=== PATIENT | female | born 1960 | race American Indian/Alaskan Native ===

== ENCOUNTER 2016-06-11 13:59 | Emergency (ER) | payer MEDICAID ==
[2016-06-11 14:14] VITALS: BP 127/65
--- NOTE | 2016-06-11 15:17 | EDM.PDOC ---
ED HPI GENERAL MEDICAL PROBLEM - General Chief Complaint: Abdominal Pain Stated Complaint: FLU Time Seen by Provider: 06/11/16 14:55 Source of Information: Reports: Patient History Limitations: Reports: No limitations - History of Present Illness INITIAL COMMENTS - FREE TEXT/NARRATIVE: This 56 yo female patient reports to the ED with a 1 day history of upper abdominal pain and a 1 week history of a cough. The patient reports she has not been able to sleep due to the cough. Today, the patient reports increased pain in her upper abdomen. The patient has not been seen by a primary care facility and is currently not taking any medications for temporary symptom relief. Onset: today (abdominal pain with nausea), gradual (cough) Duration: Week(s): Location: Reports: chest, abdomen Quality: Reports: Ache, Dull Severity: moderate Improves with: Reports: None Worsens with: Reports: None Associated Symptoms: Reports: cough, nausea/vomiting Epigastric Pain Score (Numeric/FACES): 5 - Related Data Allergies Allergy/AdvReac Type Severity Reaction Status Date / Time Anesthetics - Amide Type Allergy Anaphylactic Verified 06/11/16 14:09 Shock ibuprofen Allergy Stomach Verified 06/11/16 14:09 Ache Home Meds: Home Meds Bumetanide [Bumex] 0.5 mg PO DAILY 06/11/16 [History] Insulin Aspart [NovoLOG] 6 units SQ ASDIRECTED 06/11/16 [History] Insulin Detemir [Levemir] 20 units SQ ASDIRECTED 06/11/16 [History] Levothyroxine Sodium [Synthroid] 1 tab PO DAILY 06/11/16 [History] Metoprolol Tartrate [Lopressor] 1 tab PO DAILY 06/11/16 [History] Mometasone/Formoterol [Dulera 200-5 MCG] 1 puff INH ASDIRECTED 06/11/16 [History ] Montelukast [Singulair] 1 tab PO DAILY 06/11/16 [History] PARoxetine HCl [Paxil] 1 tab PO DAILY 06/11/16 [History] Pantoprazole Sodium [Protonix] 1 tab PO DAILY 06/11/16 [History] hydrALAZINE [Apresoline] 1 tab PO DAILY 06/11/16 [History] Past Medical History Cardiovascular History: Reports: Hypertension Gastrointestinal History: Reports: GERD Genitourinary History: Reports: Dialysis Psychiatric History: Reports: Depression Endocrine/Metabolic History: Reports: Diabetes, type I Social & Family History - Family History Family Medical History: Noncontributory - Tobacco Use Smoking Status *Q: Never Smoker Second Hand Smoke Exposure: No - Caffeine Use Caffeine Use: Reports: Coffee Caffeine Use Comment: occassional ED ROS GENERAL - Review of Systems Review Of Systems: ROS reveals no pertinent complaints other than HPI. ED EXAM, GENERAL - Physical Exam Exam: See Below Exam Limited By: No limitations General Appearance: alert, WD/WN, moderate distress Eye Exam: bilateral eye: EOMI, normal inspection, PERRL Ears: normal external exam, normal canal, hearing grossly normal, normal TMs Nose: normal inspection, normal mucosa, no blood Throat/Mouth: Normal inspection, Normal lips, Normal teeth, Normal gums, Normal oropharynx, Normal voice, No airway compromise Head: atraumatic, normocephalic Neck: normal inspection, supple, non-tender, full range of motion Respiratory/Chest: no respiratory distress, no accessory muscle use, chest non- tender, rhonchi (diffuse) Cardiovascular: normal peripheral pulses, regular rate, rhythm, no edema, no gallop, no JVD, no murmur, no rub GI/Abdominal: normal bowel sounds, soft, no organomegaly, no distention, no abnormal bruit, no mass, tender (epigastric) (Female) Exam: Deferred Rectal (Female) Exam: Deferred Back Exam: normal inspection, full range of motion, NT Extremities: normal inspection, normal range of motion, non-tender, normal capillary refill, no pedal edema Neurological: alert, oriented, CN II-XII intact, normal cognition, normal gait, normal reflexes, no motor/sensory deficits Psychiatric: normal affect, normal mood Skin Exam: Warm, Dry, Intact, Normal color, No rash Lymphatic: no adenopathy Course - Vital Signs Last Recorded V/S: Last Vital Signs Temp 36.1 C 06/11/16 14:12 Pulse 131 H 06/11/16 14:12 Resp 20 06/11/16 14:12 BP 127/65 06/11/16 14:12 Pulse Ox 99 06/11/16 14:12 - Orders/Labs/Meds Orders: Active Orders 24 hr Category Date Time Status STREP SCRN A RAPID W CULT CONF [RM] Stat Lab 06/11/16 15:11 Received Lactated Ringers [Ringers, Lactated] 1,000 ml Med 06/11/16 16:17 Ordered IV .BOLUS Medication Orders Lactated Ringer's (Ringers, Lactated) 1,000 mls @ 500 mls/hr IV .BOLUS ONE Stop: 06/11/16 18:16 Labs: Laboratory Tests 06/11/16 06/11/16 Range/Units 15:15 15:15 WBC 10.6 H (5.0-10.0) 10^3/uL RBC 3.66 L (4.2-5.4) 10^6/uL Hgb 11.5 L (12.0-16.0) g/dL Hct 33.9 L (37.0-47.0) % MCV 92.6 (80-100) fL MCH 31.4 (27.0-34.0) pg MCHC 33.9 (33.0-35.0) g/dL Plt Count 293 (150-450) 10^3/uL Neut % (Auto) 84.7 H (42.2-75.2) % Lymph % (Auto) 10.6 L (20.5-50.1) % [place] % (Auto) 2.5 (2-8) % Eos % (Auto) 1.9 (1.0-3.0) % Baso % (Auto) 0.3 (0.0-1.0) % Sodium 135 (135-145) mmol/L Potassium 3.9 (3.6-5.0) mmol/L Chloride 95 L (101-111) mmol/L Carbon Dioxide 28.0 (21.0-31.0) mmol/L Anion Gap 15.9 BUN 35 H (7-18) mg/dL Creatinine 4.0 H (0.6-1.3) mg/dL Est Cr Clr Drug Dosing 14.53 mL/min Estimated GFR (MDRD) 12 BUN/Creatinine Ratio 8.75 Glucose 327 H (74-105) mg/dL Calcium 7.9 L (8.4-10.2) mg/dl Total Bilirubin 1.0 (0.2-1.0) mg/dL AST 170 H (10-42) IU/L ALT 415 H (10-60) IU/L Alkaline Phosphatase 149 H (42-121) IU/L Total Protein 6.4 L (6.7-8.2) g/dl Albumin 2.8 L (3.2-5.5) g/dl Globulin 3.6 Albumin/Globulin Ratio 0.78 Amylase 765 H (28-100) U/L Lipase 334 H (22-51) U/L Meds: Medications Generic Name Dose Route Start Last Admin Trade Name Freq PRN Reason Stop Dose Admin Lactated Ringer's 1,000 mls @ 500 mls/hr 06/11/16 16:17 Ringers, Lactated IV 06/11/16 18:16 .BOLUS ONE Departure - Departure Time of Disposition: 16:32 Disposition: DC/Tfer to Acute Hospital 02 Condition: poor Clinical Impression: Acute pancreatitis Qualifiers: Pancreatitis type: unspecified pancreatitis type Acute pancreatitis complication: unspecified Qualified Code(s): K85.90 - Acute pancreatitis without necrosis or infection, unspecified Forms: Interfacility Transfer EMTALA Care Plan Goals: Discussed the patient's history, examination, lab and x-ray results with Dr. Mora (Hospitalist with [facility] in [place]). Dr. Mora accepted the patient for continued evaluation and management. The patient will be transported by [facility]. - My Orders Last 24 Hours: My Active Orders 06/11/16 15:11 STREP SCRN A RAPID W CULT CONF [RM] Stat 06/11/16 16:17 Lactated Ringers [Ringers, Lactated] 1,000 ml IV .BOLUS - Assessment/Plan Last 24 Hours: My Active Orders 06/11/16 15:11 STREP SCRN A RAPID W CULT CONF [RM] Stat 06/11/16 16:17 Lactated Ringers [Ringers, Lactated] 1,000 ml IV .BOLUS
--- NOTE | 2016-06-11 16:08 | CR ---
Clinical history: 56-year-old female with cough and shortness of breath. Interpretation: Coarse accentuation of bronchovascular markings and patchy, anterior segment, left l ower lobe atelectasis or developing infiltrate. Normal cardiac silhouette without signs of alveolar edema or dependent effusion. No lung mass, hilar lymphadenopathy or other focal lobar consolidation. CONCLUSION: Left lower lobe atelectasis or infiltrate.
[2016-06-11] MEDS ORDERED: Lactated Ringers 1,000 ML IV ONE (16:17)
[2016-06-11] MEDS ORDERED: Morphine 2 MG/ML Syringe IVPUSH ONE (16:33)
== END 2016-06-11 17:15 ==
LOC: DL.ED 13:59
DX: K85.90 Acute pancreatitis without necrosis or infection, unspecified (principal); I10 Essential (primary) hypertension; K21.9 Gastro-esophageal reflux disease without esophagitis; F32.9 Major depressive disorder, single episode, unspecified; E10.9 Type 1 diabetes mellitus without complications; Z79.4 Long term (current) use of insulin; Z79.899 Other long term (current) drug therapy; Z88.6 Allergy status to analgesic agent; Z88.4 Allergy status to anesthetic agent
CPT/HCPCS: 36415; 71020; 80053; 82150; 83690; 85025; 87081; 87430; 87804; 96361; 96374; 99284; J2270; J7120

== ENCOUNTER 2017-01-03 12:18 | Emergency (ER) | payer MEDICAID ==
--- NOTE | 2017-01-03 12:36 | EDM.PDOC ---
ED HPI GENERAL MEDICAL PROBLEM - General Chief Complaint: Diabetic Complaint Stated Complaint: FROM DIALYSIS Time Seen by Provider: 01/03/17 12:35 Source of Information: Reports: Patient, RN, RN Notes Reviewed History Limitations: Reports: No Limitations - History of Present Illness INITIAL COMMENTS - FREE TEXT/NARRATIVE: Pt presents to the ER from dialysis today. Report from dialysis nurse was that pt's bp upon arrival to dialysis was 190/97. Patient states she had taken all of her medications prior to dialysis. During the run the pt's bp dropped to 87 syst., patient became clammy and the nurses were unable to arouse the patient. Dialysis nurse states she was given 25gm of D50, juice, and candy. BP reportedly improved and patient was taken off dialysis 30 minutes early. Patient states she takes 10 units of humalog and took it this morning. She states she felt fine when she left dialysis, and she feels fine now. Denies chest pain, sob, fever, chills, N/V/D. Onset: Today, Sudden Associated Symptoms: Reports: No Other Symptoms Abdomen Pain Score (Numeric/FACES): 5 - Related Data Allergies Allergy/AdvReac Type Severity Reaction Status Date / Time Anesthetics - Amide Type Allergy Anaphylactic Verified 01/03/17 12:45 Shock ibuprofen Allergy Stomach Verified 01/03/17 12:45 Ache Home Meds: Home Meds Bumetanide [Bumex] 0.5 mg PO DAILY 06/11/16 [History] Insulin Aspart [NovoLOG] 10 units SQ ASDIRECTED 06/11/16 [History] Insulin Detemir [Levemir] 35 units SQ ASDIRECTED 06/11/16 [History] Levothyroxine Sodium [Synthroid] 1 tab PO DAILY 06/11/16 [History] Metoprolol Tartrate [Lopressor] 1 tab PO DAILY 06/11/16 [History] Mometasone/Formoterol [Dulera 200-5 MCG] 1 puff INH ASDIRECTED 06/11/16 [History ] Montelukast [Singulair] 1 tab PO DAILY 06/11/16 [History] PARoxetine HCl [Paxil] 0.5 tab PO DAILY 06/11/16 [History] Pantoprazole Sodium [Protonix] 1 tab PO DAILY 06/11/16 [History] hydrALAZINE [Apresoline] 1 tab PO DAILY 06/11/16 [History] Past Medical History Cardiovascular History: Reports: Hypertension Gastrointestinal History: Reports: GERD Genitourinary History: Reports: Dialysis Psychiatric History: Reports: Depression Endocrine/Metabolic History: Reports: Diabetes, Type I Social & Family History - Family History Family Medical History: Noncontributory - Tobacco Use Smoking Status *Q: Never Smoker Second Hand Smoke Exposure: No - Caffeine Use Caffeine Use: Reports: Coffee Caffeine Use Comment: occassional ED ROS GENERAL - Review of Systems Review Of Systems: ROS reveals no pertinent complaints other than HPI. - Physical Exam Exam: See Below Exam Limited By: No Limitations General Appearance: Alert, WD/WN, No Apparent Distress Eye Exam: Bilateral Eye: Normal Inspection Ears: Normal External Exam, Hearing Grossly Normal Nose: Normal Inspection Throat/Mouth: Normal Inspection, Normal Voice, No Airway Compromise Head Exam: Atraumatic, Normocephalic Neck: Normal Inspection Respiratory/Chest: No Respiratory Distress, Lungs Clear, Normal Breath Sounds Cardiovascular: Normal Peripheral Pulses, Regular Rate, Rhythm, No Edema, No Gallop, No JVD, No Murmur, No Rub GI/Abdominal: Normal Bowel Sounds, Soft, Non-Tender, No Organomegaly, No Distention, No Abnormal Bruit, No Mass (Female) Exam: Deferred Rectal (Female) Exam: Deferred Neuro Exam (Abbreviated): Alert, Oriented, Normal Cognition, Normal Gait, Normal Reflexes, No Motor/Sensory Deficits Back Exam: Normal Inspection, Full Range of Motion Extremities: Normal Inspection, Normal Range of Motion, Non-Tender, No Pedal Edema, Normal Capillary Refill Psychiatric: Normal Affect, Normal Mood Skin Exam: Warm, Dry, Intact, Normal Color, No Rash EKG INTERPRETATION EKG Date: 01/03/17 Time: 13:39 Rhythm: NSR [place]: Normal P-Wave: Present QRS: Normal ST-T: Normal QT: Normal Comparison: NA - No Prior EKG Course - Vital Signs Last Recorded V/S: Last Vital Signs Temp 96.7 F 01/03/17 12:36 Pulse 71 01/03/17 12:36 Resp 16 01/03/17 12:36 BP 109/56 L 01/03/17 12:36 Pulse Ox 98 01/03/17 12:36 - Orders/Labs/Meds Orders: Active Orders 24 hr Category Date Time Status EKG Documentation Completion [RC] STAT Care 01/03/17 12:38 Active UA W/MICROSCOPIC [URIN] Stat Lab 01/03/17 12:38 Uncollected Labs: Laboratory Tests 01/03/17 01/03/17 Range/Units 12:49 12:49 WBC 8.7 (5.0-10.0) 10^3/uL RBC 3.33 L (4.2-5.4) 10^6/uL Hgb 11.6 L (12.0-16.0) g/dL Hct 35.3 L (37.0-47.0) % MCV 106.0 H D (80-100) fL MCH 34.8 H (27.0-34.0) pg MCHC 32.9 L (33.0-35.0) g/dL Plt Count 194 D (150-450) 10^3/uL Neut % (Auto) 76.5 H (42.2-75.2) % Lymph % (Auto) 12.0 L (20.5-50.1) % [place] % (Auto) 4.2 (2-8) % Eos % (Auto) 6.5 H (1.0-3.0) % Baso % (Auto) 0.8 (0.0-1.0) % Sodium 135 (135-145) mmol/L Potassium 4.4 (3.6-5.0) mmol/L Chloride 94 L (101-111) mmol/L Carbon Dioxide 28.0 (21.0-31.0) mmol/L Anion Gap 17.4 BUN 34 H (7-18) mg/dL Creatinine 5.6 H D (0.6-1.3) mg/dL Est Cr Clr Drug Dosing TNP Estimated GFR (MDRD) 8 BUN/Creatinine Ratio 6.07 Glucose 302 H (74-105) mg/dL Calcium 8.1 L (8.4-10.2) mg/dl Total Bilirubin 0.6 (0.2-1.0) mg/dL AST 20 (10-42) IU/L ALT 15 (10-60) IU/L Alkaline Phosphatase 144 H (42-121) IU/L Total Protein 7.4 (6.7-8.2) g/dl Albumin 3.7 (3.2-5.5) g/dl Globulin 3.7 Albumin/Globulin Ratio 1.00 Departure - Departure Time of Disposition: 13:24 Disposition: Home, Self-Care 01 Condition: Good Clinical Impression: Hyperglycemia CKD (chronic kidney disease) Qualifiers: Chronic kidney disease stage: on chronic dialysis Qualified Code(s): N18.6 - End stage renal disease - Discharge Information Instructions: Hypotension, [id number], Type 2 Diabetes Mellitus, Adult, Easy- to-Read Forms: ED Department Discharge Additional Instructions: Follow up with Dr. Moura tomorrow at [facility]. Dialysis as scheduled. Check blood sugars regularly. - My Orders Last 24 Hours: My Active Orders 01/03/17 12:38 EKG Documentation Completion [RC] STAT UA W/MICROSCOPIC [URIN] Stat - Assessment/Plan Last 24 Hours: My Active Orders 01/03/17 12:38 EKG Documentation Completion [RC] STAT UA W/MICROSCOPIC [URIN] Stat
[2017-01-03 12:45] VITALS: BP 109/56
[2017-01-03 13:14] LABS: CHLORIDE,CL 94 mmol/L (101-111); SODIUM,NA 135 mmol/L (135-145)
--- NOTE | 2017-01-10 12:21 | EKG ---
01/03/2017 - FAITH STRAUSS - This 12-lead EKG shows a normal sinus rhythm with a ventricular rate of 72. Normal axis. Prolonged QT interval. No acute ST-segment or T-wave changes. [facility] /[id number]
== END 2017-01-03 13:50 | disposition home or self-care (01) ==
LOC: DL.ED 12:18
DX: E10.65 Type 1 diabetes mellitus with hyperglycemia (principal); E10.22 Type 1 diabetes mellitus with diabetic chronic kidney disease; N18.6 End stage renal disease; I12.0 Hypertensive chronic kidney disease with stage 5 chronic kidney disease or end stage renal disease; K21.9 Gastro-esophageal reflux disease without esophagitis; F32.9 Major depressive disorder, single episode, unspecified; Z88.6 Allergy status to analgesic agent; Z79.4 Long term (current) use of insulin
CPT/HCPCS: 36415; 80053; 85025; 93005; 99285

== ENCOUNTER 2017-04-22 14:34 | Emergency (ER) | payer MEDICAID ==
--- NOTE | 2017-04-22 14:53 | EDM.PDOC ---
ED HPI GENERAL MEDICAL PROBLEM - General Chief Complaint: Abdominal Pain Stated Complaint: SICK X 3 WEEKS Time Seen by Provider: 04/22/17 14:53 Source of Information: Reports: Patient, Old Records, RN, RN Notes Reviewed History Limitations: Reports: No Limitations - History of Present Illness INITIAL COMMENTS - FREE TEXT/NARRATIVE: Arrives from home by POV with c/o mild generalized abdominal pain, weakness, fatigue, cough, and diarrhea for the last 3 weeks. Pt has felt much worse for the last 3 days. She felt too weak today to go to dialysis, but has not missed any other days. Pt reports that she was seen at [facility] 3 weeks ago for a colonoscopy, but they could not complete the study because pt was having pain and the prep was not adequate. She states that following the colonoscopy she had several days of bloody diarrhea. The bloody stool was self limited, but she has continued to have about 5 watery diarrhea BMs per day since that time. Duration: Week(s): (3) Quality: Reports: Ache Severity: Severe Improves with: Reports: None Worsens with: Reports: None Associated Symptoms: Reports: No Other Symptoms Right Headache Pain Score (Numeric/FACES): 7 Lower Abdomen Pain Score (Numeric/FACES): 7 - Related Data Allergies Allergy/AdvReac Type Severity Reaction Status Date / Time Anesthetics - Amide Type Allergy Anaphylactic Verified 01/03/17 12:45 Shock ibuprofen Allergy Stomach Verified 01/03/17 12:45 Ache Home Meds: Home Meds Bumetanide [Bumex] 0.5 mg PO DAILY 06/11/16 [History] Insulin Aspart [NovoLOG] 10 units SQ ASDIRECTED 06/11/16 [History] Insulin Detemir [Levemir] 35 units SQ ASDIRECTED 06/11/16 [History] Levothyroxine Sodium [Synthroid] 1 tab PO DAILY 06/11/16 [History] Metoprolol Tartrate [Lopressor] 1 tab PO DAILY 06/11/16 [History] Mometasone/Formoterol [Dulera 200-5 MCG] 1 puff INH ASDIRECTED 06/11/16 [History ] Montelukast [Singulair] 1 tab PO DAILY 06/11/16 [History] PARoxetine HCl [Paxil] 0.5 tab PO DAILY 06/11/16 [History] Pantoprazole Sodium [Protonix] 1 tab PO DAILY 06/11/16 [History] hydrALAZINE [Apresoline] 1 tab PO DAILY 06/11/16 [History] Past Medical History HEENT History: Reports: Impaired Vision Other HEENT History: wears glasses Cardiovascular History: Reports: Hypertension Respiratory History: Reports: Asthma, COPD Gastrointestinal History: Reports: GERD Genitourinary History: Reports: Dialysis [employer] History: Reports: None Musculoskeletal History: Reports: None Neurological History: Reports: None Psychiatric History: Reports: Depression Endocrine/Metabolic History: Reports: Diabetes, Type I Hematologic History: Reports: None Immunologic History: Reports: None Oncologic (Cancer) History: Reports: None Dermatologic History: Reports: None - Infectious Disease History Infectious Disease History: Reports: Measles, Mumps Social & Family History - Family History Family Medical History: Noncontributory - Tobacco Use Smoking Status *Q: Never Smoker Second Hand Smoke Exposure: No - Caffeine Use Caffeine Use: Reports: Coffee Caffeine Use Comment: occassional - Recreational Drug Use Recreational Drug Use: No ED ROS GENERAL - Review of Systems Review Of Systems: ROS reveals no pertinent complaints other than HPI. ED EXAM, GENERAL - Physical Exam Exam: See Below Exam Limited By: No Limitations General Appearance: Other (Chronically ill appearing. Non-toxic appearing.) Eye Exam: Bilateral Eye: Normal Inspection Ears: Normal External Exam, Normal Canal, Hearing Grossly Normal, Normal TMs Nose: Normal Inspection, Normal Mucosa, No Blood Throat/Mouth: Other (dry oral membranes) Head: Atraumatic Neck: Normal Inspection, Supple, Non-Tender, Full Range of Motion Respiratory/Chest: No Respiratory Distress, Lungs Clear, No Accessory Muscle Use , Chest Non-Tender, Decreased Breath Sounds (in bilateral bases.) Cardiovascular: Normal Peripheral Pulses, Regular Rate, Rhythm, No Edema, No Gallop, No JVD, No Murmur, No Rub GI/Abdominal: Normal Bowel Sounds, Soft, No Distention, Other (moderately obese. Mild generalized tenderness. No peritoneal signs. ). No: Guarding, Rigid , Rebound (Female) Exam: Deferred Rectal (Female) Exam: Deferred Back Exam: Normal Inspection, Full Range of Motion, NT Extremities: Normal Inspection, Normal Range of Motion, Non-Tender, Normal Capillary Refill, No Pedal Edema Neurological: Alert, Oriented, CN II-XII Intact, Normal Cognition, Normal Gait, Normal Reflexes, No Motor/Sensory Deficits Psychiatric: Normal Affect, Normal Mood Skin Exam: Warm Lymphatic: No Adenopathy Course - Vital Signs Last Recorded V/S: Last Vital Signs Temp 37.4 C 04/22/17 14:47 Pulse 71 04/22/17 14:47 Resp 18 04/22/17 14:47 BP 155/61 H 04/22/17 14:47 Pulse Ox 97 04/22/17 14:47 - Orders/Labs/Meds Orders: Active Orders 24 hr Category Date Time Status Peripheral IV Care [RC] . DIRECTED Care 04/22/17 15:10 Active Chest 2V [CR] Stat Exams 04/22/17 15:10 Taken CULTURE BLOOD [BC] Stat Lab 04/22/17 15:27 Received CULTURE BLOOD [] Stat Lab 04/22/17 15:30 Results CULTURE STREP A CONFIRMATION [] Stat Lab 04/22/17 15:30 Results STREP SCRN A RAPID W CULT CONF [] Stat Lab 04/22/17 15:30 Results Sodium Chloride 0.9% [Saline Flush] Med 04/22/17 15:10 Active 10 ml FLUSH ASDIRECTED PRN Blood Culture x2 Reflex Set [OM.PC] Stat Oth 04/22/17 15:10 Ordered Peripheral IV Insertion Adult [OM.PC] Stat Oth 04/22/17 15:10 Ordered Medication Orders Sodium Chloride (Saline Flush) 10 ml FLUSH ASDIRECTED PRN PRN Reason: Keep Vein Open Last Admin: 04/22/17 15:37 Dose: 10 ml Labs: Laboratory Tests 04/22/17 04/22/17 04/22/17 Range/Units 15:27 15:27 15:27 WBC 10.4 H (5.0-10.0) 10^3/uL RBC 2.94 L (4.2-5.4) 10^6/uL Hgb 9.4 L D (12.0-16.0) g/dL Hct 29.2 L (37.0-47.0) % MCV 99.3 D (80-100) fL MCH 32.0 (27.0-34.0) pg MCHC 32.2 L (33.0-35.0) g/dL Plt Count 109 L D (150-450) 10^3/uL Neut % (Auto) 75.7 H (42.2-75.2) % Lymph % (Auto) 15.1 L (20.5-50.1) % [place] % (Auto) 6.2 (2-8) % Eos % (Auto) 2.1 (1.0-3.0) % Baso % (Auto) 0.9 (0.0-1.0) % Add Manual Diff Yes Neutrophils % (Manual) 82 H (42-75) % Lymphocytes % (Manual) 10 L (20-50) % Monocytes % (Manual) 4 (2-8) % Eosinophils % (Manual) 2 (1-3) % Basophils % (Manual) 2 Nucleated RBCs 1 /100WBC Platelet Estimate Decreased Giant Platelets Few Polychromasia 1+ slight Macrocytosis 1+ slight Sodium 127 L (135-145) mmol/L Potassium 4.6 (3.6-5.0) mmol/L Chloride 89 L (101-111) mmol/L Carbon Dioxide 20.0 L (21.0-31.0) mmol/L Anion Gap 22.6 BUN 59 H D (7-18) mg/dL Creatinine 8.2 H D (0.6-1.3) mg/dL Est Cr Clr Drug Dosing 7.00 mL/min Estimated GFR (MDRD) 5 BUN/Creatinine Ratio 7.19 Glucose 413 H* (74-105) mg/dL Lactic Acid 2.8 H (0.5-2.2) mmol/L Calcium 7.9 L (8.4-10.2) mg/dl Phosphorus 6.0 H (2.5-4.6) mg/dL Magnesium 1.6 L (1.8-2.5) mg/dL Total Bilirubin 1.0 (0.2-1.0) mg/dL AST 627 H (10-42) IU/L ALT 1118 H (10-60) IU/L Alkaline Phosphatase 188 H (42-121) IU/L Total Protein 6.5 L (6.7-8.2) g/dl Albumin 3.1 L (3.2-5.5) g/dl Globulin 3.4 Albumin/Globulin Ratio 0.91 Amylase 68 (28-100) U/L Lipase 60 H (22-51) U/L Rapid strep: Negative. Influenza A and B: Negative. Meds: Medications Generic Name Dose Route Start Last Admin Trade Name Freq PRN Reason Stop Dose Admin Sodium Chloride 10 ml 04/22/17 15:10 04/22/17 15:37 Saline Flush FLUSH 10 ml ASDIRECTED PRN Administration Keep Vein Open Discontinued Medications Generic Name Dose Route Start Last Admin Trade Name Freq PRN Reason Stop Dose Admin Hydromorphone HCl 1 mg 04/22/17 16:26 04/22/17 16:41 Dilaudid IVPUSH 04/22/17 16:27 1 mg ONETIME ONE Administration Ondansetron HCl 4 mg 04/22/17 15:12 04/22/17 15:38 Zofran IV 04/22/17 15:13 4 mg ONETIME ONE Administration - Radiology Interpretation Free Text/Narrative:: Chest x-ray: Cardiomegaly with the heart larger as compared to prior chest x- ray. Slightly increased interstitial markings which is about the same and probably due to pulmonary fibrosis. No sign of acute cardiopulmonary abnormality. Departure - Departure Time of Disposition: 16:51 Disposition: DC/Tfer to [facility] 02 Clinical Impression: End stage renal disease on dialysis, Acute diarrhea Acute liver failure Qualifiers: Hepatic coma status: without hepatic coma Qualified Code(s): K72.00 - Acute and subacute hepatic failure without coma - Discharge Information Forms: ED Department Discharge, Interfacility Transfer EMTALA - My Orders Last 24 Hours: My Active Orders 04/22/17 15:10 Peripheral IV Care [RC] . DIRECTED Chest 2V [CR] Stat Sodium Chloride 0.9% [Saline Flush] 10 ml FLUSH ASDIRECTED PRN Blood Culture x2 Reflex Set [OM.PC] Stat Peripheral IV Insertion Adult [OM.PC] Stat 04/22/17 15:27 CULTURE BLOOD [BC] Stat 04/22/17 15:30 CULTURE BLOOD [BC] Stat CULTURE STREP A CONFIRMATION [RM] Stat STREP SCRN A RAPID W CULT CONF [RM] Stat - Assessment/Plan Last 24 Hours: My Active Orders 04/22/17 15:10 Peripheral IV Care [RC] . DIRECTED Chest 2V [CR] Stat Sodium Chloride 0.9% [Saline Flush] 10 ml FLUSH ASDIRECTED PRN Blood Culture x2 Reflex Set [OM.PC] Stat Peripheral IV Insertion Adult [OM.PC] Stat 04/22/17 15:27 CULTURE BLOOD [BC] Stat 04/22/17 15:30 CULTURE BLOOD [BC] Stat CULTURE STREP A CONFIRMATION [] Stat STREP SCRN A RAPID W CULT CONF [RM] Stat
[2017-04-22 15:08] VITALS: BP 155/61
[2017-04-22] MEDS ORDERED: Sodium Chloride 0.9% 10 ML Syringe FLUSH PRN (15:10)
[2017-04-22] MEDS ORDERED: Ondansetron 4 MG/2 ML SDV IV ONE (15:12)
[2017-04-22] MEDS ORDERED: HYDROmorphone 1 MG/ML Syringe IVPUSH ONE (16:26)
== END 2017-04-22 17:22 ==
LOC: DL.ED 14:34
DX: K72.00 Acute and subacute hepatic failure without coma (principal); R19.7 Diarrhea, unspecified; I12.0 Hypertensive chronic kidney disease with stage 5 chronic kidney disease or end stage renal disease; N18.6 End stage renal disease; E10.22 Type 1 diabetes mellitus with diabetic chronic kidney disease; Z88.6 Allergy status to analgesic agent; Z88.4 Allergy status to anesthetic agent; Z79.4 Long term (current) use of insulin; Z79.899 Other long term (current) drug therapy; Z99.2 Dependence on renal dialysis
CPT/HCPCS: 36415; 71046; 80053; 82150; 83605; 83690; 83735; 84100; 85025; 87040; 87081; 87430; 87804; 96374; 96375; 99285; J1170; J2405; J7050

== ENCOUNTER 2017-06-27 13:19 | Emergency (ER) | payer MEDICAID, OTHER ==
--- NOTE | 2017-06-27 14:00 | EDM.PDOC ---
ED HPI GENERAL MEDICAL PROBLEM - General Chief Complaint: Neurological Problem Stated Complaint: SENT FROM DIALYSIS [id number] Time Seen by Provider: 06/27/17 14:00 Source of Information: Reports: Patient, Family, Old Records, RN, RN Notes Reviewed History Limitations: Reports: No Limitations - History of Present Illness INITIAL COMMENTS - FREE TEXT/NARRATIVE: Sent from dialysis, after completing scheduled full dialysis run, due to generalized weakness and mild confusion. Pt has fallen twice at home in the last 3 day. She injured her left wrist and nose. Denies LOC, N/V, or neck injury /pain. Denies fever, chills, CP, SOB, or any other new Sx's. Pt had a stroke about 2 months ago, and she wonders if her Sx's are effects of the stroke. Pt's states that she has been mildly confused at times. Onset: Unknown/Unsure Duration: Week(s): Location: Reports: Face, Upper Extremity, Left, Generalized Quality: Reports: Ache Severity: Moderate Improves with: Reports: None Worsens with: Reports: None Associated Symptoms: Reports: No Other Symptoms Left Knee Pain Score (Numeric/FACES): 7 - Related Data Allergies Allergy/AdvReac Type Severity Reaction Status Date / Time Anesthetics - Amide Type Allergy Anaphylactic Verified 01/03/17 12:45 Shock ibuprofen Allergy Stomach Verified 01/03/17 12:45 Ache Home Meds: Home Meds Bumetanide [Bumex] 0.5 mg PO DAILY 06/11/16 [History] Insulin Aspart [NovoLOG] 10 units SQ ASDIRECTED 06/11/16 [History] Insulin Detemir [Levemir] 35 units SQ ASDIRECTED 06/11/16 [History] Levothyroxine Sodium [Synthroid] 1 tab PO DAILY 06/11/16 [History] Metoprolol Tartrate [Lopressor] 1 tab PO DAILY 06/11/16 [History] Mometasone/Formoterol [Dulera 200-5 MCG] 1 puff INH ASDIRECTED 06/11/16 [History ] Montelukast [Singulair] 1 tab PO DAILY 06/11/16 [History] PARoxetine HCl [Paxil] 0.5 tab PO DAILY 06/11/16 [History] Pantoprazole Sodium [Protonix] 1 tab PO DAILY 06/11/16 [History] hydrALAZINE [Apresoline] 1 tab PO DAILY 06/11/16 [History] Past Medical History HEENT History: Reports: Impaired Vision Other HEENT History: wears glasses Cardiovascular History: Reports: Hypertension Respiratory History: Reports: Asthma, COPD Gastrointestinal History: Reports: GERD Genitourinary History: Reports: Dialysis 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 Musculoskeletal History: Reports: None Neurological History: Reports: None Psychiatric History: Reports: Depression Endocrine/Metabolic History: Reports: Diabetes, Type I Hematologic History: Reports: None Immunologic History: Reports: None Oncologic (Cancer) History: Reports: None Dermatologic History: Reports: None - Infectious Disease History Infectious Disease History: Reports: Measles, Mumps Social & Family History - Family History Family Medical History: Noncontributory - Tobacco Use Smoking Status *Q: Never Smoker Second Hand Smoke Exposure: No - Caffeine Use Caffeine Use: Reports: Coffee Caffeine Use Comment: occassional - Recreational Drug Use Recreational Drug Use: No - Living Situation & Occupation Living situation: Reports: , with Spouse Occupation: Retired ED ROS GENERAL - Review of Systems Review Of Systems: ROS reveals no pertinent complaints other than HPI. ED EXAM, GENERAL - Physical Exam Exam: See Below Exam Limited By: No Limitations General Appearance: Alert, No Apparent Distress, Other (chronically ill appearing) Eye Exam: Bilateral Eye: EOMI, Normal Inspection, PERRL Ears: Normal External Exam, Normal Canal, Hearing Grossly Normal, Normal TMs Nose: Normal Mucosa, No Blood, Other (1cm alex. abrasion ) Throat/Mouth: Normal Inspection, Normal Oropharynx, Normal Voice, No Airway Compromise Head: Atraumatic, Normocephalic Neck: Normal Inspection, Supple, Non-Tender, Full Range of Motion Respiratory/Chest: No Respiratory Distress, Lungs Clear, No Accessory Muscle Use , Chest Non-Tender, Decreased Breath Sounds Cardiovascular: Regular Rate, Rhythm, No Edema GI/Abdominal: Normal Bowel Sounds, Soft, Non-Tender, No Distention, Pelvis Stable. No: Guarding, Rigid, Rebound (Female) Exam: Deferred Rectal (Female) Exam: Deferred Back Exam: Normal Inspection, Full Range of Motion, NT Extremities: No Pedal Edema, Normal Capillary Refill, Other (dorsal left wrist swollen w/bruising, tenderness, and decreaed ROM) Neurological: Alert, Normal Cognition, No Motor/Sensory Deficits, Confused ( slightly), Other (oriented to person and place only) Psychiatric: Normal Mood Skin Exam: Warm, Dry, Normal Color, No Rash EKG INTERPRETATION EKG Date: 06/27/17 Time: 14:34 Rhythm: Other (sinus rhythm) Rate (Beats/Min): 79 [place]: Normal P-Wave: Present QRS: Normal ST-T: Other (borderline T abnormalities, anterior leads.) QT: Prolonged (borderline) Course - Vital Signs Last Recorded V/S: Last Vital Signs Temp 36.5 C 06/27/17 13:56 Pulse 77 06/27/17 13:56 Resp 16 06/27/17 13:56 BP 160/70 H 06/27/17 13:56 Pulse Ox 97 06/27/17 13:56 - Orders/Labs/Meds Orders: Active Orders 24 hr Category Date Time Status EKG 12 Lead [EKG Documentation Completion] [RC] STAT Care 06/27/17 14:19 Active Peripheral IV Care [RC] . DIRECTED Care 06/27/17 14:20 Active Splinting [RC] ASDIRECTED Care 06/27/17 16:13 Active Head wo Cont [CT] Stat Exams 06/27/17 14:21 Ordered Max Facial Sinus wo Cont [CT] Stat Exams 06/27/17 14:22 Ordered Wrist Comp Min 3V Lt [CR] Urgent Exams 06/27/17 14:21 Ordered Sodium Chloride 0.9% [Saline Flush] Med 06/27/17 14:19 Active 10 ml FLUSH ASDIRECTED PRN Peripheral IV Insertion Adult [OM.PC] Stat Oth 06/27/17 14:19 Ordered Medication Orders Sodium Chloride (Saline Flush) 10 ml FLUSH ASDIRECTED PRN PRN Reason: Keep Vein Open Labs: Laboratory Tests 06/27/17 06/27/17 06/27/17 Range/Units 14:30 14:30 14:30 WBC 6.9 (5.0-10.0) 10^3/uL RBC 4.03 L (4.2-5.4) 10^6/uL Hgb 12.2 D (12.0-16.0) g/dL Hct 37.0 (37.0-47.0) % MCV 91.8 D (80-100) fL MCH 30.3 (27.0-34.0) pg MCHC 33.0 (33.0-35.0) g/dL Plt Count 148 L (150-450) 10^3/uL Neut % (Auto) 66.5 (42.2-75.2) % Lymph % (Auto) 20.4 L (20.5-50.1) % [place] % (Auto) 3.2 (2-8) % Eos % (Auto) 8.5 H (1.0-3.0) % Baso % (Auto) 1.4 H (0.0-1.0) % Sodium 136 (135-145) mmol/L Potassium 3.8 (3.6-5.0) mmol/L Chloride 95 L (101-111) mmol/L Carbon Dioxide 30.0 D (21.0-31.0) mmol/L Anion Gap 14.8 BUN 26 H D (7-18) mg/dL Creatinine 4.7 H D (0.6-1.3) mg/dL Est Cr Clr Drug Dosing 12.21 mL/min Estimated GFR (MDRD) 10 BUN/Creatinine Ratio 5.53 Glucose 282 H (74-105) mg/dL Calcium 8.7 (8.4-10.2) mg/dl Total Bilirubin 1.5 H (0.2-1.0) mg/dL AST 18 (10-42) IU/L ALT 13 (10-60) IU/L Alkaline Phosphatase 183 H (42-121) IU/L Ammonia 8 L (11-35) umol/L B-Natriuretic Peptide 1190 H (0-100) pg/ml Total Protein 7.1 (6.7-8.2) g/dl Albumin 3.4 (3.2-5.5) g/dl Globulin 3.7 Albumin/Globulin Ratio 0.92 Meds: Medications Generic Name Dose Route Start Last Admin Trade Name Freq PRN Reason Stop Dose Admin Sodium Chloride 10 ml 06/27/17 14:19 Saline Flush FLUSH ASDIRECTED PRN Keep Vein Open Discontinued Medications Generic Name Dose Route Start Last Admin Trade Name Freq PRN Reason Stop Dose Admin Hydrocodone Bitart/Acetaminophen 1 tab 06/27/17 16:11 06/27/17 16:24 [place]ale 325-5 Mg PO 06/27/17 16:12 1 tab ONETIME ONE Administration - Radiology Interpretation Free Text/Narrative:: CT Head: old CVAs, no acute findings per Rad. report. Xray left wrist: no fracture per Rad. report. - Re-Assessments/Exams Free Text/Narrative Re-Assessment/Exam: 06/27/[address] Gonzalez, pt has a f/u appt. with him next week. Departure - Departure Time of Disposition: 16:14 Disposition: Home, Self-Care 01 Condition: Fair Clinical Impression: Generalized weakness, Confusion, End stage renal disease on dialysis Fall as cause of accidental injury at home as place of occurrence Qualifiers: Encounter type: initial encounter Qualified Code(s): W19.XXXA - Unspecified fall, initial encounter Abrasion of nose Qualifiers: Encounter type: initial encounter Qualified Code(s): S00.31XA - Abrasion of nose, initial encounter Left wrist sprain Qualifiers: Encounter type: initial encounter Qualified Code(s): S63.502A - Unspecified sprain of left wrist, initial encounter Contusion of left wrist Qualifiers: Encounter type: initial encounter Qualified Code(s): S60.212A - Contusion of left wrist, initial encounter - Discharge Information Instructions: Abrasion, Wrist Sprain, Adult, Weakness Forms: ED Department Discharge Additional Instructions: Use your walker! Follow up with Dr. Gonzalez as scheduled. Return to ER if worse at any time. - My Orders Last 24 Hours: My Active Orders 06/27/17 14:19 EKG 12 Lead [EKG Documentation Completion] [RC] STAT Sodium Chloride 0.9% [Saline Flush] 10 ml FLUSH ASDIRECTED PRN Peripheral IV Insertion Adult [OM.PC] Stat 06/27/17 14:20 Peripheral IV Care [RC] . DIRECTED 06/27/17 14:21 Head wo Cont [CT] Stat Wrist Comp Min 3V Lt [CR] Urgent 06/27/17 14:22 Max Facial Sinus wo Cont [CT] Stat 06/27/17 16:13 Splinting [RC] ASDIRECTED - Assessment/Plan Last 24 Hours: My Active Orders 06/27/17 14:19 EKG 12 Lead [EKG Documentation Completion] [RC] STAT Sodium Chloride 0.9% [Saline Flush] 10 ml FLUSH ASDIRECTED PRN Peripheral IV Insertion Adult [OM.PC] Stat 06/27/17 14:20 Peripheral IV Care [RC] . DIRECTED 06/27/17 14:21 Head wo Cont [CT] Stat Wrist Comp Min 3V Lt [CR] Urgent 06/27/17 14:22 Max Facial Sinus wo Cont [CT] Stat 06/27/17 16:13 Splinting [RC] ASDIRECTED
[2017-06-27] MEDS ORDERED: Sodium Chloride 0.9% 10 ML Syringe FLUSH PRN (14:19)
[2017-06-27 14:45] VITALS: BP 160/70
[2017-06-27] MEDS ORDERED: Acetaminophen/HYDROcodone 325-5 MG Tab PO ONE (16:11)
--- NOTE | 2017-06-27 17:30 | CR ---
Clinical history: 57-year-old confused female injured left wrist (fall). Interpretation: Pronounced soft tissue swelling over the dorsum of the wrist without sign of underlying fracture of t he left wrist carpal bones or of the metacarpals left hand. Distal radius and ulna likewise unremarka ble. No foreign bodies. CONCLUSION: No fractures.
--- NOTE | 2017-06-27 17:37 | CT ---
Clinical history: 57-year-old female with history of "stroke" present in the emergency department now with confusion and fall. Scan technique: Volume acquisition of data emergency unenhanced CT scan of the head and brain obtaine d while the patient was lying supine on the Siemens multi slice scanner [place], [place]. All data archived in the PAC system for storage and study (bone/brain windows corrine se breast. Interpretation: 1. Uniformly thick bony calvarium without sign of skull fracture, underlying brain contusion or epidu ral/subdural hematoma. 2. *Multiple areas of ischemic stroke (infarcts), without edema or effacement of the surrounding sulc i, particularly large involving the parietal lobe anteriorly on the right, frontal lobe laterally on the left, and occipital lobe posteriorly on the right. 3. *Additional tiny lacunar type stroke respectively in the head of the caudate nucleus on the right and putamen on the left. 4. Physiologic midline pineal and symmetric choroid plexus calcifications. Mirror-image normal ventri cular system. No hydrocephalus. 5. No sign of acute intracerebral/intraventricular/subarachnoid bleed. 6. Cerebellum and brainstem unremarkable. 7. Symmetric clear pneumatization of the paranasal and mastoid sinuses. CONCLUSION: Multi-infarct ischemic disease (old strokes). No sign of acute intracranial edema or hemo rrhage. No fractures.
--- NOTE | 2017-06-27 17:44 | CT ---
Clinical history: 57-year-old female multiple old "strokes" and confusion who fell injuring her nose. Interpretation: Volume acquisition of data emergency unenhanced CT scan facial bones obtained while t he patient was lying supine on the Siemens multi slice scanner [facility]. All data archived PACS system for storage, reformatting and study. Interpretation: 1. Mild soft tissue swelling but no fracture of the nasal or anterior maxillary spine and, the nasal septum is relatively straight. 2. Symmetric nonedematous nasal turbinates. 3. No foreign bodies. 4. Symmetric clear pneumatization of the paranasal (frontal, ethmoid, maxillary and sphenoid sinuses) and mastoid sinuses. No bony wall fracture, abnormal mucosal wall thickening, or pathologic air-fluid levels. 5. Symmetric dental occlusion. No maxillary or mandibular fractures. Zygomatic arches symmetrically i ntact. 6. Symmetric normal appearing optic globes. No retro-orbital hematomas. CONCLUSION: Mild soft tissue swelling. No facial bone fractures.
--- NOTE | 2017-06-29 12:26 | EKG ---
06/27/2017 - FAITH STRAUSS - TIME: 2:34 p.m. After my reading, sinus rhythm at 79. [facility] /[id number] MTDD
== END 2017-06-27 16:34 | disposition home or self-care (01) ==
LOC: DL.ED 13:19
DX: S63.502A Unspecified sprain of left wrist, initial encounter (principal); S60.212A Contusion of left wrist, initial encounter; S00.31XA Abrasion of nose, initial encounter; E10.22 Type 1 diabetes mellitus with diabetic chronic kidney disease; N18.6 End stage renal disease; I10 Essential (primary) hypertension; Z88.6 Allergy status to analgesic agent; Z79.899 Other long term (current) drug therapy; W19.XXXA Unspecified fall, initial encounter; Y92.009 Unspecified place in unspecified non-institutional (private) residence as the place of occurrence of the external cause
CPT/HCPCS: 36415; 70450; 70486; 73110; 80053; 82140; 83880; 85025; 93005; 99285; A9270

== ENCOUNTER 2018-07-26 12:55 | Emergency (ER) | payer MEDICARE, MEDICAID ==
--- NOTE | 2018-07-26 13:24 | EDM.PDOC ---
ED HPI GENERAL MEDICAL PROBLEM <Maia Brown - Last Filed: 07/26/18 15:33> - General Source of Information: Reports: Patient, Old Records, RN, RN Notes Reviewed History Limitations: Reports: No Limitations Left Trunk Pain Score (Numeric/FACES): 10 <Gabriel Elizabeth - Last Filed: 07/26/18 15:38> - General Chief Complaint: Trauma Stated Complaint: FELL AND HURT RIBS Time Seen by Provider: 07/26/18 13:23 - History of Present Illness INITIAL COMMENTS - FREE TEXT/NARRATIVE: Patient is a 58 year old female presenting with a recent trauma. She states she fell yesterday evening (07/25/18) and hit her chest on a cabinet before falling on the ground. She also thinks she may have hit her head. She denies loss of consciousness. She has associated symptoms of shortness of breath, left sided pain, She does have a significant history of end stage renal disease necessitating hemodialysis, stroke, and syncope. She denies associated symptoms of sudden weakness, fever, chills, chest pain, abdominal pain, or changes in bowel or bladder habits. (Maia Brown) No changes to HPI/CC as documented by the student, except that pt states she has had a cough for a few days and worried that she might get pneumonia again. She had not been to clinic yet to have the cough evaluated. (Gabriel Elizabeth ) - Related Data Allergies Allergy/AdvReac Type Severity Reaction Status Date / Time Anesthetics - Amide Type Allergy Anaphylactic Verified 07/26/18 13:22 Shock ibuprofen Allergy Stomach Verified 07/26/18 13:22 Ache Home Meds: Home Meds Bumetanide [Bumex] 0.5 mg PO DAILY 06/11/16 [History] Insulin Aspart [NovoLOG] 10 units SQ BIDMEALS 06/11/16 [History] Insulin Detemir [Levemir] 10 units SQ QPM 06/11/16 [History] Levothyroxine Sodium [Synthroid] 1 tab PO DAILY 06/11/16 [History] Mometasone/Formoterol [Dulera 200-5 MCG] 1 puff INH BID 06/11/16 [History] Montelukast [Singulair] 1 tab PO DAILY PRN 06/11/16 [History] PARoxetine HCl [Paxil] 0.5 tab PO DAILY 06/11/16 [History] Pantoprazole Sodium [Protonix] 1 tab PO DAILY 06/11/16 [History] hydrALAZINE [Apresoline] 1 tab PO DAILY 06/11/16 [History] Levothyroxine [Synthroid] 100 mcg PO DAILY 09/03/17 [History] Past Medical History HEENT History: Reports: Impaired Vision Other HEENT History: wears glasses Cardiovascular History: Reports: Heart Murmur, Hypertension, [place] Respiratory History: Reports: Asthma, COPD Gastrointestinal History: Reports: GERD Genitourinary History: Reports: Dialysis 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 (See Below) Other 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 SUPERVISOR History: hysterectomy 10 years ago Musculoskeletal History: Reports: Osteoarthritis Other Musculoskeletal History: left knee surgery Neurological History: Reports: CVA Other Neuro History: CVA May 2017-gait slightly unsteady Psychiatric History: Reports: Depression Endocrine/Metabolic History: Reports: Diabetes, Type II, Hypothyroidism Hematologic History: Reports: Anemia Immunologic History: Reports: None Oncologic (Cancer) History: Reports: None Dermatologic History: Reports: Other (See Below) Other Dermatologic History: Hx of frequent rashes - Infectious Disease History Infectious Disease History: Reports: Measles, Mumps - Past Surgical History GI Surgical History: Reports: Other (See Below) Other GI Surgeries/Procedures: stomach tumor removed 10 years ago Musculoskeletal Surgical History: Reports: Other (See Below) Other Musculoskeletal Surgeries/Procedures:: surgical repair to left knee 1978 <Gabriel Elizabeth - Last Filed: 07/26/18 15:38> Social & Family History - Family History Family Medical History: Noncontributory - Caffeine Use Caffeine Use: Reports: Coffee, Tea Caffeine Use Comment: occassional - Living Situation & Occupation Living situation: Reports: , with Spouse Occupation: Retired <Gabriel Elizabeth - Last Filed: 07/26/18 15:38> Review of Systems - Review of Systems Review Of Systems: ROS reveals no pertinent complaints other than HPI. <Maia Brown - Last Filed: 07/26/18 15:33> ED EXAM, GENERAL - Physical Exam Exam: See Below Exam Limited By: No Limitations General Appearance: Alert, Moderate Distress Eye Exam: Bilateral Eye: EOMI, PERRL Ears: Normal External Exam Nose: Normal Inspection, No Blood Throat/Mouth: Normal Inspection, Dysphagia Head: Atraumatic (To initial observation, no obvious hematoma or tenderness to palpation), Normocephalic Neck: Normal Inspection, Supple, Non-Tender, Limited Range of Motion (due to generalized neck pain) Respiratory/Chest: Respiratory Distress, Decreased Breath Sounds, Crackles ( bibasilar), Wheezing (Expiratory), Accessory Muscle Use, Splinting Cardiovascular: Regular Rate, Rhythm, Systolic Murmur Peripheral Pulses: 2+: Dorsalis Pedis (L), Dorsalis Pedis (R) GI/Abdominal: Normal Bowel Sounds, Soft, Non-Tender Extremities: Normal Inspection, Non-Tender, No Pedal Edema Neurological: Alert, Oriented, CN II-XII Intact Skin Exam: Warm, Dry, Intact, Ecchymosis (along left midaxillary line) <Maia Brown - Last Filed: 07/26/18 15:33> Course <Maia Brown - Last Filed: 07/26/18 15:33> <Gabriel Elizabeth - Last Filed: 07/26/18 15:38> - Vital Signs Last Recorded V/S: Last Vital Signs Temp 35.8 C 07/26/18 15:07 Pulse 61 07/26/18 15:07 Resp 14 07/26/18 15:07 BP 178/52 H 07/26/18 15:07 Pulse Ox 97 07/26/18 15:07 - Orders/Labs/Meds Orders: Active Orders 24 hr Category Date Time Status Peripheral IV Care [RC] . DIRECTED Care 07/26/18 14:43 Active RT Aerosol Therapy [RC] ASDIRECTED Care 07/26/18 15:29 Active CBC WITH MANUAL DIFF [HEME] Stat Lab 07/26/18 14:40 Ordered COMPREHENSIVE METABOLIC PN,CMP [CHEM] Stat Lab 07/26/18 14:40 Ordered CULTURE BLOOD [BC] Stat Lab 07/26/18 14:42 Ordered CULTURE BLOOD [BC] Stat Lab 07/26/18 14:42 Ordered LACTIC ACID [CHEM] Stat Lab 07/26/18 14:40 Ordered Levofloxacin/Dextrose 5%-Water [Levaquin in D5W 500 MG/ Med 07/26/18 15:27 Active 100 ML] 500 mg Premix Bag 1 bag IV ONETIME Sodium Chloride 0.9% [Saline Flush] Med 07/26/18 14:43 Active 10 ml FLUSH ASDIRECTED PRN Blood Culture x2 Reflex Set [OM.PC] Stat Oth 07/26/18 14:42 Ordered Peripheral IV Insertion Adult [OM.PC] Routine Oth 07/26/18 14:43 Ordered Medication Orders Levofloxacin/Dextrose 500 mg/ (Premix) 100 mls @ 100 mls/hr IV ONETIME ONE Stop: 07/26/18 16:26 Sodium Chloride (Saline Flush) 10 ml FLUSH ASDIRECTED PRN PRN Reason: Keep Vein Open Last Admin: 07/26/18 15:05 Dose: 10 ml Admin: 07/26/18 15:00 Dose: 10 ml Meds: Medications Generic Name Dose Route Start Last Admin Trade Name Freq PRN Reason Stop Dose Admin Levofloxacin/Dextrose 500 mg/ 100 mls @ 100 mls/hr 07/26/18 15:27 Premix IV 07/26/18 16:26 ONETIME ONE Sodium Chloride 10 ml 07/26/18 14:43 07/26/18 15:05 Saline Flush FLUSH 10 ml ASDIRECTED PRN Administration Keep Vein Open Discontinued Medications Generic Name Dose Route Start Last Admin Trade Name Freq PRN Reason Stop Dose Admin Albuterol 7.5 mg 07/26/18 15:28 Proventil Neb Soln NEB 07/26/18 15:29 ONETIME ONE Calcium Chloride 1 gm 07/26/18 15:29 Calcium Chloride 10% IVPUSH 07/26/18 15:30 ONETIME ONE Hydromorphone HCl 1 mg 07/26/18 14:46 07/26/18 15:01 Dilaudid IVPUSH 07/26/18 14:47 1 mg ONETIME ONE Administration Ondansetron HCl 4 mg 07/26/18 14:43 07/26/18 14:59 Zofran IV 07/26/18 14:44 4 mg ONETIME ONE Administration Sodium Polystyrene Sulfonate 45 gm 07/26/18 15:29 Kayexalate PO 07/26/18 15:30 NOW ONE - Re-Assessments/Exams Free Text/Narrative Re-Assessment/Exam: 07/26/18 14:58 1. CBC, CMP, Lactic acid, and blood cultures pending. 2. Chest X-ray: Conclusion: several left rib fractures. New right lower lobe atelectasis or infiltrate since [address] Diez 3. Given Zofran and Dilaudid for pain management. (Maia Brown) Free Text/Narrative Re-Assessment/Exam: 07/26/18 15:34 1. Significant lab results: elevated potassium noted. Albuterol nebulizer treatment initiated. Antibiotic treatment with levofloxacin initiated also for infection. (Maia Brown) Free Text/Narrative Re-Assessment/Exam: 07/26/18 15:36 I personally performed or re-performed the physical examination and medical decision making. I have verified all student documentation or findings, including history, physical exam and/or medical decision making. (Gabriel Elizabeth) Departure - Departure Time of Disposition: 15:18 Condition: Poor - Discharge Information *PRESCRIPTION DRUG MONITORING PROGRAM REVIEWED*: No *COPY OF PRESCRIPTION DRUG MONITORING REPORT IN PATIENT OSVALDO: No <Maia Brown - Last Filed: 07/26/18 15:33> <Gabriel Elizabeth - Last Filed: 07/26/18 15:38> - Departure Disposition: DC/Tfer to [facility] 02 Clinical Impression: Rib fracture Qualifiers: Encounter type: initial encounter Rib fracture type: multiple ribs Fracture type: closed Laterality: left Qualified Code(s): S22.42XA - Multiple fractures of ribs, left side, initial encounter for closed fracture CKD (chronic kidney disease) Qualifiers: Chronic kidney disease stage: on chronic dialysis Qualified Code(s): N18.6 - End stage renal disease Fall as cause of accidental injury at home as place of occurrence Qualifiers: Encounter type: initial encounter Qualified Code(s): W19.XXXA - Unspecified fall, initial encounter - Discharge Information Forms: ED Department Discharge, Interfacility Transfer [facility] Care Plan Goals: 1. Patient advised for transfer to [facility] [place]. Patient and significant other are in agreement with this plan.
--- NOTE | 2018-07-26 14:09 | CR ---
Clinical history: 58-year-old female experiencing left rib pain associated with fall. Interpretation: PA chest and left rib detail films abnormal. Asymmetric patchy right lower lobe pneumonic like infiltrate or atelectasis. Acute nondisplaced fractures of the lateral left 7, 8, 9th ribs. (Underlying lung contusion and/or atelectasis LLL). No pneumothorax. No dependent effusion. No signs of heart failure lung mass or hilar lymphadenopathy. Cholecystectomy. CONCLUSION: Several left rib fractures. New right lower lobe atelectasis or infiltrate since [address] chest[address]
[2018-07-26] MEDS ORDERED: Ondansetron 4 MG/2 ML SDV IV ONE (14:43)
[2018-07-26] MEDS ORDERED: HYDROmorphone 1 MG/ML Syringe IVPUSH ONE (14:46)
[2018-07-26] MEDS: Sodium Chloride 0.9% 10 ML Syringe FLUSH PRN ×2 (15:00→15:05)
[2018-07-26 15:09] VITALS: BP 178/52
[2018-07-26] MEDS ORDERED: Levofloxacin/Dextrose 5%-Water 500 MG in Premix Bag 1 BAG IV ONE (15:27)
[2018-07-26] MEDS ORDERED: Albuterol 0.083% 2.5 MG/3 ML Neb Soln NEB ONE (15:28)
[2018-07-26] MEDS ORDERED: Sodium Polystyrene Sulfonate 15 GM/60 ML Susp 60 ML Bot PO ONE (15:29)
[2018-07-26] MEDS ORDERED: Calcium Chloride 10% 1 GM/10 ML Syringe IVPUSH ONE (15:29)
[2018-07-26 16:21] LABS: ANION GAP 19.6
== END 2018-07-26 16:02 ==
LOC: DL.ED 12:55
DX: S22.42XA Multiple fractures of ribs, left side, initial encounter for closed fracture (principal); I12.9 Hypertensive chronic kidney disease with stage 1 through stage 4 chronic kidney disease, or unspecified chronic kidney disease; E11.22 Type 2 diabetes mellitus with diabetic chronic kidney disease; N18.9 Chronic kidney disease, unspecified; D63.1 Anemia in chronic kidney disease; J44.9 Chronic obstructive pulmonary disease, unspecified; E03.9 Hypothyroidism, unspecified; Z79.4 Long term (current) use of insulin; Z79.899 Other long term (current) drug therapy; W19.XXXA Unspecified fall, initial encounter
CPT/HCPCS: 36415; 71101; 80053; 83605; 85007; 85027; 87040; 96374; 96375; 99285; A9270; J1170; J1956; J2405; J7613-GY

== ENCOUNTER 2019-07-02 12:49 | Emergency (ER) | payer OTHER, MEDICARE, MEDICAID ==
--- NOTE | 2019-07-02 13:05 | EDM.PDOC ---
ED HPI GENERAL MEDICAL PROBLEM - General Stated Complaint: FELL IN ENTRANCE OF HOSPITAL Time Seen by Provider: 07/02/19 12:50 Source of Information: Reports: Patient History Limitations: Reports: No Limitations - History of Present Illness INITIAL COMMENTS - FREE TEXT/NARRATIVE: HPI: This 59 yo female patient was reporting to the hospital for dialysis when she tripped on one rug over the top of a carpet at the entrance of the hospital. The patient fell directly onto her face (nose) and hit her left knee on the ground during the process. The patient reports pain in her face and to her left knee. The patient had bleeding from an exterior laceration to the bridge of her nose, a bloody nose during assessment of the patient while on the floor. The patient was assisted x3 to a wheelchair and brought to the ED. The patient was moved from the wheelchair with the assistance of 4 to the bed. The patient could not put any weight on her left knee during transfers. Primary Survey Airway: open and patient Breathing: regular without additional effort Circulation: The patient had a bloody nose and minor bleeding from a laceration to the bridge of her nose Deformity: no deformity noted Expose: as appropriate GCS: 15 Secondary Survey HEENT Head: normocephalic, atraumatic Eyes: PERRLA Ears: no obvious trauma, canals open Nose: no deformity, moderate bleeding from bilateral nares, minor bleeding from a laceration to the bridge of her nose Mouth: no noted trauma Throat: no abnormalities noted Neck: Subtle, normal range of motion no cervical tenderness Chest: lung sounds were clear and equal bilaterally, Heart was RRR, no murmurs, rubs or gallop Abdomen: normoactive bowel sounds, no organomegally, no tenderness on palpation Pelvis: stable Extremities: CMS intact, the patient has bruising and pain to the left knee due to the fall. Provider Trauma Notes Arrival Time: GCS on Arrival: C-collar present on arrival: GCS at 1 hour: Off spine board: Time primary survey: Time secondary survey: Time C-collar cleared: By: Time removed: GCS on discharge: Onset: Today Onset Date: 07/02/19 Onset Time: 12:50 Duration: Constant Location: Reports: Head, Face, Lower Extremity, Left Quality: Reports: Ache Severity: Moderate Improves with: Reports: None Worsens with: Reports: Movement Context: Reports: Other (ground level fall) Associated Symptoms: Reports: No Other Symptoms left knee Pain Score (Numeric/FACES): 10 face Pain Score (Numeric/FACES): 10 - Related Data Allergies Allergy/AdvReac Type Severity Reaction Status Date / Time Anesthetics - Amide Type Allergy Anaphylactic Verified 09/29/18 17:04 Shock ibuprofen Allergy Stomach Verified 09/29/18 17:04 Ache Home Meds: Home Meds Bumetanide [Bumex] 0.5 mg PO DAILY 06/11/16 [History] Insulin Aspart [NovoLOG] 10 units SQ BIDMEALS 06/11/16 [History] Insulin Detemir [Levemir] 10 units SQ QPM 06/11/16 [History] Levothyroxine Sodium [Synthroid] 1 tab PO DAILY 06/11/16 [History] Mometasone/Formoterol [Dulera 200-5 MCG] 1 puff INH BID 06/11/16 [History] Montelukast [Singulair] 1 tab PO DAILY PRN 06/11/16 [History] PARoxetine HCl [Paxil] 0.5 tab PO DAILY 06/11/16 [History] Pantoprazole Sodium [Protonix] 1 tab PO DAILY 06/11/16 [History] hydrALAZINE [Apresoline] 1 tab PO DAILY 06/11/16 [History] Levothyroxine [Synthroid] 125 mcg PO DAILY 09/03/17 [History] Past Medical History HEENT History: Reports: Impaired Vision Other HEENT History: wears glasses Cardiovascular History: Reports: Heart Murmur, Hypertension, [place] Respiratory History: Reports: Asthma, COPD, Pneumonia, Recurrent Gastrointestinal History: Reports: GERD Genitourinary History: Reports: Dialysis 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: Reports: Other (See Below) Other 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: hysterectomy 10 years ago Musculoskeletal History: Reports: Osteoarthritis Other Musculoskeletal History: left knee surgery Neurological History: Reports: CVA Other Neuro History: CVA May 2017-gait slightly unsteady Psychiatric History: Reports: Depression Endocrine/Metabolic History: Reports: Diabetes, Type II, Hypothyroidism Hematologic History: Reports: Anemia Immunologic History: Reports: None Oncologic (Cancer) History: Reports: None Dermatologic History: Reports: Other (See Below) Other Dermatologic History: Hx of frequent rashes - Infectious Disease History Infectious Disease History: Reports: Measles, Mumps - Past Surgical History GI Surgical History: Reports: Other (See Below) Other GI Surgeries/Procedures: stomach tumor removed 10 years ago Musculoskeletal Surgical History: Reports: Other (See Below) Other Musculoskeletal Surgeries/Procedures:: surgical repair to left knee 1978 Social & Family History - Family History Family Medical History: Noncontributory - Caffeine Use Caffeine Use: Reports: Coffee, Tea Caffeine Use Comment: occassional - Living Situation & Occupation Living situation: Reports: , with Spouse Occupation: Retired Review of Systems - Review of Systems Review Of Systems: Comprehensive ROS is negative, except as noted in HPI. ED EXAM, GENERAL - Physical Exam Exam: See Below Exam Limited By: No Limitations General Appearance: Alert, WD/WN, Moderate Distress Eye Exam: Bilateral Eye: EOMI, Normal Inspection, PERRL Ears: Normal External Exam, Normal Canal, Hearing Grossly Normal, Normal TMs Nose: Other (bilateral nose bleed (trauma related), minor laceration to the bridge of her nose with minor bleeding) Throat/Mouth: Normal Inspection, Normal Lips, Normal Teeth, Normal Gums, Normal Oropharynx, Normal Voice, No Airway Compromise Head: Atraumatic, Normocephalic Neck: Normal Inspection, Supple, Non-Tender, Full Range of Motion Respiratory/Chest: No Respiratory Distress, Lungs Clear, Normal Breath Sounds, No Accessory Muscle Use, Chest Non-Tender Cardiovascular: Normal Peripheral Pulses, Regular Rate, Rhythm, No Edema, No Gallop, No JVD, No Murmur, No Rub GI/Abdominal: Normal Bowel Sounds, Soft, Non-Tender, No Organomegaly, No Distention, No Abnormal Bruit, No Mass (Female) Exam: Deferred Rectal (Female) Exam: Deferred Back Exam: Normal Inspection, Full Range of Motion, NT Extremities: Leg Pain (left knee pain with palpation and movement. Bruising noted to the area (patient is on Plavix)) Neurological: Alert, Oriented, CN II-XII Intact, Normal Cognition, No Motor/ Sensory Deficits, Abnormal Gait (due to left knee pain) Psychiatric: Normal Affect, Normal Mood Skin Exam: Warm, Dry, Normal Color, No Rash, Wound/Incision (laceration to the bridge of her nose) Lymphatic: No Adenopathy Course - Vital Signs Last Recorded V/S: Last Vital Signs Temp 36.4 C 07/02/19 13:12 Pulse 74 04/13/20 13:12 Resp 17 07/02/19 13:12 BP 168/76 H 07/02/19 13:12 Pulse Ox 98 07/02/19 13:12 - Orders/Labs/Meds Labs: Laboratory Tests 07/02/19 07/02/19 Range/Units 13:06 13:06 WBC 7.1 (5.0-10.0) 10^3/uL RBC 3.18 L (4.2-5.4) 10^6/uL Hgb 10.8 L (12.0-16.0) g/dL Hct 32.3 L (37.0-47.0) % MCV 101.6 H (80-100) fL MCH 34.0 (27.0-34.0) pg MCHC 33.4 (33.0-35.0) g/dL Plt Count 171 (150-450) 10^3/uL Neut % (Auto) 64.9 (42.2-75.2) % Lymph % (Auto) 23.4 (20.5-50.1) % Rabun % (Auto) 3.7 (2-8) % Eos % (Auto) 6.4 H (1.0-3.0) % Baso % (Auto) 1.6 H (0.0-1.0) % Add Manual Diff Yes Neutrophils % (Manual) 61 (42-75) % Lymphocytes % (Manual) 28 (20-50) % Monocytes % (Manual) 5 (2-8) % Eosinophils % (Manual) 6 H (1-3) % Sodium 135 L (136-145) mmol/L Potassium 4.2 (3.5-5.1) mmol/L Chloride 95 L (98-107) mmol/L Carbon Dioxide 29 (21-32) mmol/L Anion Gap 15.2 H (7-13) mEq/L BUN 43 H (7-18) mg/dL Creatinine 8.13 H* (0.55-1.02) mg/dL Est Cr Clr Drug Dosing TNP Estimated GFR (MDRD) 5 BUN/Creatinine Ratio 5.3 (No establ ref range) Glucose 330 H (74-99) mg/dL Calcium 9.4 (8.5-10.1) mg/dL Total Bilirubin 0.9 (0.2-1.0) mg/dL AST 24 (15-37) U/L ALT 29 (14-59) U/L Alkaline Phosphatase 213 H (46-116) U/L Total Protein 8.1 (6.4-8.2) g/dL Albumin 4.0 (3.4-5.0) g/dL Globulin 4.1 Albumin/Globulin Ratio 1.0 Meds: Medications Discontinued Medications Generic Name Dose Route Start Last Admin Trade Name Cherelle PRN Reason Stop Dose Admin Morphine Sulfate 2 mg 07/02/19 13:37 07/02/19 13:45 Morphine IVPUSH 07/02/19 13:38 2 mg ONETIME ONE Administration - Re-Assessments/Exams Free Text/Narrative Re-Assessment/Exam: 07/02/19 13:38 The patient was advised of the x-ray results (knee). The patient rates her pain at a 5/10 at this time and would like something to reduce her pain. 07/02/19 14:33 A left knee immobilizer was applied for support during transport. Departure - Departure Time of Disposition: 14:34 Disposition: DC/Tfer to Acute Hospital 02 Condition: Fair Clinical Impression: Fall from ground level Left patella fracture Qualifiers: Encounter type: initial encounter Fracture type: closed Fracture morphology: transverse Fracture alignment: displaced Qualified Code(s): S82.032A - Displaced transverse fracture of left patella, initial encounter for closed fracture CKD (chronic kidney disease) Qualifiers: Chronic kidney disease stage: unspecified stage Qualified Code(s): N18.9 - Chronic kidney disease, unspecified Nasal bone fractures Qualifiers: Encounter type: initial encounter Fracture type: open Qualified Code(s): S02.2XXB - Fracture of nasal bones, initial encounter for open fracture - Discharge Information *PRESCRIPTION DRUG MONITORING PROGRAM REVIEWED*: Not Applicable *COPY OF PRESCRIPTION DRUG MONITORING REPORT IN PATIENT OSVALDO: Not Applicable Forms: Interfacility Transfer EMTALA Care Plan Goals: Discussed the patient's history, examination, lab, x-ray and CT results with Dr. Acosta and Dr. Kent. The patient was transferred to Dr. Acosta for continued evaluation and management. The patient will be transported by [facility]. Sepsis Event Note - Focused Exam Vital Signs: Vital Signs Temp Pulse Resp BP Pulse Ox 07/02/19 13:12 36.4 C 74 17 168/76 H 98 Date Exam was Performed: 07/02/19 Time Exam was Performed: 14:33
[2019-07-02 13:13] VITALS: BP 168/76; PULSE 74
[2019-07-02 13:33] LABS: ANION GAP 15.2 mEq/L (7-13); CHLORIDE,CL 95 mmol/L (98-107); SODIUM,NA 135 mmol/L (136-145)
[2019-07-02] MEDS ORDERED: Morphine 2 MG/ML Syringe IVPUSH ONE ×2 (13:37→14:59)
--- NOTE | 2019-07-02 13:52 | CT ---
EXAMINATION: Head wo Cont SEX: Female AGE: 59 years CLINICAL HISTORY: 59-year-old female facial injury in ground-level fall (nosebleed). Scan technique: Volume acquisition of data emergency unenhanced CT scan of the head and brain obtained with the patient lying supine on the Siemens multislice scanner [employer], [place]. All data archived in the PACS system for storage, reformatting axial/sagittal/coronal planes and study (bone/soft tissue windows). Interpretation: Abnormal. 1. Large Ischemic infarct and/or encephalomalacia involving the parietal lobe, on the right, that is unchanged since comparison exam 21 April 2018. No associated edema or mass effect. No acute intracranial bleed but larger artery (pseudoaneurysm?) laterally in the right cerebral hemisphere. Recommend considering elective MRI/MR angiogram. 2. Generalized mild and symmetric cerebral cortical atrophy with underlying mirror-image normal ventricular system. No new evidence hydrocephalus. 3. Uniformly thick bony calvarium. No sign of extracerebral/intracranial epidural or subdural hematoma. No sign of skull fracture but, comminuted NASAL FRACTURE clearly evident on axial scan slices numbers 7-9. 4. Symmetric clear pneumatization of the paranasal and mastoid sinuses. No foreign bodies. Note: *Blood and subcutaneous air extending along the top the maxilla, back into the nasopharynx. Puncture wound? 5. Physiologic midline pineal and symmetric choroid plexus calcifications. 6. No new supratentorial or posterior fossa mass lesion. 7. No sign of acute intracerebral, intraventricular or subarachnoid bleed. 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 Comminuted nasal bone fracture. Subcutaneous air midline nasopharynx (puncture?). No sign of bony calvarial fracture, brain contusion, epidural/subdural hematoma or acute intracranial bleed.
--- NOTE | 2019-07-02 13:56 | CR ---
EXAMINATION: Knee 2V Lt SEX: Female AGE: 59 years CLINICAL HISTORY: 59-year-old female injured left knee (Ground level fall). INTERPRETATION: Abnormal. Acute midline fracture mid patella with over 2 cm diastases or separation of major fragments. Surrounding soft tissue swelling. No foreign bodies (densely calcified "cast" distal femoral popliteal and posterior tibial arteries). Conclusion: Acute patellar FRACTURE.
--- NOTE | 2019-07-02 14:01 | CT ---
EXAMINATION: Cervical Spine wo Cont SEX: Female AGE: 59 years CLINICAL HISTORY: 59-year-old female facial injury associated with Ground level fall. "Comminuted nasal bone fracture". Scan technique: Volume acquisition of data emergency unenhanced CT scan of the skull base and cervical spine obtained with the patient lying supine on the Siemens multislice scanner [place], [place]. All data archived in the PACS system for storage, reformatting axial/sagittal/coronal planes and study. INTERPRETATION: Abnormal. 1. *Abnormal GAS collected in the retropharyngeal soft tissues (ethmoid extension to the throat, posteriorly?). 2. No foreign bodies. 3. Symmetric clear pneumatization of the mastoid sinuses. Normal temporomandibular joints. 4. Normal density, height and alignment of the 7 cervical vertebra. Signs of chronic multilevel lower cervical disc disease i.e. interspace narrowing, endplate sclerosis and hypertrophic marginal/uncinate spur formation C5-6 and C6-7 levels. 5. No prevertebral soft tissue swelling, sign of surgical fracture, spondylolisthesis or jump locked facet. 6. CONCLUSION: No acute cervical fracture or dislocation. Abnormal retropharyngeal distention of air (puncture wound in the throat?)
--- NOTE | 2019-07-02 14:25 | CT ---
EXAMINATION: Max Facial Sinus wo Cont SEX: Female AGE: 59 years CLINICAL HISTORY: 59-year-old female facial injury associated with ground-level fall. "Chronic multilevel lower cervical disc disease and common nasal bone fracture and abnormal subcutaneous air is extending along the "roof" of the bony maxilla back into the pharynx (Puncture wound?) demonstrated on CT scan head. Scan technique: Emergency unenhanced CT scan of the facial bones including orbits and mild obtained with patient lying supine on the Siemens multislice scanner [place], [place]. All data archived in the PACS system for storage, reformatting axial/sagittal/coronal planes and study (bone/soft tissue windows). Interpretation: Abnormal. 1. Badly comminuted but minimally displaced fractures of the nasal spine and lateral nasal ala on the left. 2. No foreign bodies. 3. *Ipsilateral left ethmoid sinus obscured presumably by blood and there is AIR extending posteriorly into the soft tissues of the nasopharynx and retropharyngeal throat, on the left presumably originating from the ipsilateral ethmoid sinus but specialty ENT evaluation recommended. 4. Some minimal anterior nasal septal deviation to the right (posterior nasal septum is straight). 5. Symmetric clear pneumatization of the frontal, maxillary, sphenoid and mastoid sinuses. 6. Normal TMJs and symmetric dental occlusion. Upper cervical spine unremarkable.
== END 2019-07-02 15:20 ==
LOC: DL.ED 12:49
DX: S82.032A Displaced transverse fracture of left patella, initial encounter for closed fracture (principal); S02.2XXB Fracture of nasal bones, initial encounter for open fracture; I12.9 Hypertensive chronic kidney disease with stage 1 through stage 4 chronic kidney disease, or unspecified chronic kidney disease; N18.9 Chronic kidney disease, unspecified; I25.2 Old myocardial infarction; J44.9 Chronic obstructive pulmonary disease, unspecified; K21.9 Gastro-esophageal reflux disease without esophagitis; E03.9 Hypothyroidism, unspecified; E11.9 Type 2 diabetes mellitus without complications; F32.9 Major depressive disorder, single episode, unspecified; Z88.6 Allergy status to analgesic agent; Z86.73 Personal history of transient ischemic attack (TIA), and cerebral infarction without residual deficits; W01.0XXA Fall on same level from slipping, tripping and stumbling without subsequent striking against object, initial encounter
CPT/HCPCS: 36415; 70450; 70486; 72125; 73560; 80053; 85025; 96374; 96376; 99284; 99285; J2270; 29505

== ENCOUNTER → 2020-03-21 | Emergency (ER) | payer MEDICARE, MEDICAID | LOC: DL.ED 17:17 | DX: Z53.21 Procedure and treatment not carried out due to patient leaving prior to being seen by health care provider (principal) ==

== ENCOUNTER 2020-04-17 18:06 | Emergency (ER) | payer MEDICARE, MEDICAID ==
[2020-04-17 18:25] VITALS: BP 156/54; PULSE 73
--- NOTE | 2020-04-17 18:50 | CR ---
PROCEDURE INFORMATION: Exam: XR Chest, 1 View Exam date and time: 04/17/2020 6:40 PM Age: 59 years old Clinical indication: Other: Altered mentation TECHNIQUE: Imaging protocol: XR of the chest Views: 1 view. Total images: 1 COMPARISON: CR Chest 1V Frontal 09/29/2018 5:45 PM FINDINGS: Lungs: Low lung volumes. Mild central vascular congestion. Chronic bandlike densities in the left base are unchanged from 09/29/2018, favoring chronic scarring and atelectasis. Patchy alveolar density in the right base is new. This could represent atelectasis from low lung volumes versus mild right basilar edema or early/mild pneumonia. Pleural spaces: No pleural effusion. No pneumothorax. Heart/Mediastinum: Mild cardiomegaly. No tracheal/mediastinal shift. Vasculature: Mild aortic calcification. Bones/joints: No acute osseous abnormalities are identified. Soft tissues: Right axillary surgical clips. IMPRESSION: 1. Low lung volumes. 2. Mild airspace disease in the right base could represent atelectasis from low lung volumes, versus early/mild pneumonia or edema. 3. Mild cardiomegaly and vascular congestion. 4. Chronic bandlike scarring or atelectasis in the left base.
[2020-04-17 19:02] LABS: ANION GAP 19.9 mEq/L (7-13); CHLORIDE,CL 96 mmol/L (98-107); SODIUM,NA 135 mmol/L (136-145)
--- NOTE | 2020-04-17 19:22 | EDM.PDOC ---
ED HPI GENERAL MEDICAL PROBLEM - General Chief Complaint: General Time Seen by Provider: 04/17/20 19:17 Source of Information: Reports: Family History Limitations: Reports: Altered Mental Status - History of Present Illness INITIAL COMMENTS - FREE TEXT/NARRATIVE: family states pt was @ [facility] for surgical procedure (fistula for dialysis) 2 days ago. but since being home has not been her normal self. been confused, not eating, unsteady. denies h/o falls. pt normally gets dialysis but missed yesterday since unable to get her here. Right Arm Pain Score (Numeric/FACES): 4 - Related Data Allergies Allergy/AdvReac Type Severity Reaction Status Date / Time Anesthetics - Amide Type - Allergy Anaphylactic Verified 04/17/20 18:44 Select A Shock [Anesthetics - Amide Type] ibuprofen Allergy Stomach Verified 04/17/20 18:44 Ache Home Meds: Home Meds Bumetanide [Bumex] 1 mg PO DAILY 06/11/16 [History] Insulin Aspart [NovoLOG] 10 units SQ BIDMEALS 06/11/16 [History] Insulin Detemir [Levemir] 10 units SQ QPM 06/11/16 [History] Mometasone/Formoterol [Dulera 200-5 MCG] 1 puff INH BID 06/11/16 [History] Montelukast [Singulair] 1 tab PO DAILY PRN 06/11/16 [History] PARoxetine HCl [Paxil] 20 mg PO DAILY 06/11/16 [History] Pantoprazole Sodium [Protonix] 40 mg PO DAILY 06/11/16 [History] hydrALAZINE [Apresoline] 1 tab PO DAILY 06/11/16 [History] Levothyroxine [Synthroid] 200 mcg PO DAILY 09/03/17 [History] Clopidogrel Bisulfate [Clopidogrel] 75 mg PO DAILY 07/02/19 [History] Loratadine/Pseudoephedrine [Allergy Relief D 12-Hour Tab] 1 each PO DAILY 07/02/19 [History] Ondansetron [Zofran ODT] 4 mg PO Q6H PRN 07/02/19 [History] Simethicone 80 mg PO PRN 07/02/19 [History] amLODIPine [Norvasc] 5 mg PO BEDTIME 07/02/19 [History] atorvaSTATin [Lipitor] 40 mg PO DAILY 07/02/19 [History] Past Medical History HEENT History: Reports: Impaired Vision Other HEENT History: wears glasses Cardiovascular History: Reports: Heart Murmur, Hypertension, [place] Respiratory History: Reports: Asthma, COPD, Pneumonia, Recurrent Gastrointestinal History: Reports: GERD Genitourinary History: Reports: Dialysis 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 fistula to R upper arm - Infectious Disease History Infectious Disease History: Reports: Measles, Mumps - Past Surgical History GI Surgical History: Reports: Other (See Below) Other GI Surgeries/Procedures: stomach tumor removed 10 years ago Female Surgical History: Reports: Other (See Below) Other Female Surgeries/Procedures: tumor removed from stomach Musculoskeletal Surgical History: Reports: Other (See Below) Other Musculoskeletal Surgeries/Procedures:: surgical repair to left knee 1978 Social & Family History - Family History Family Medical History: No Pertinent Family History - Tobacco Use Tobacco Use Status *Q: Unknown Ever Used Tobacco - Caffeine Use Caffeine Use: Reports: Coffee, Tea Caffeine Use Comment: occassional - Living Situation & Occupation Living situation: Reports: , with Spouse Occupation: Retired ED ROS GENERAL - Review of Systems Review Of Systems: Comprehensive ROS is negative, except as noted in HPI. ED EXAM, GENERAL - Physical Exam Exam: See Below Exam Limited By: No Limitations General Appearance: Alert, WD/WN, No Apparent Distress, Other (confused) Eye Exam: Bilateral Eye: PERRL (pulils ess ER @ 5mm) Ears: Hearing Grossly Normal Throat/Mouth: No Airway Compromise Head: Atraumatic Neck: Non-Tender, Full Range of Motion Respiratory/Chest: No Respiratory Distress, Rhonchi. No: Decreased Breath Sounds Cardiovascular: Regular Rate, Rhythm GI/Abdominal: Soft, Non-Tender (Female) Exam: Deferred Rectal (Female) Exam: Deferred Back Exam: Normal Inspection Extremities: Normal Range of Motion Neurological: Alert, Confused, Slow to Respond Psychiatric: Flat Affect Skin Exam: Warm, Dry, Normal Color Lymphatic: No Adenopathy Course - Vital Signs Last Recorded V/S: Last Vital Signs Temp 37.1 C 04/17/20 18:00 Pulse 73 04/17/20 18:00 Resp 22 H 04/17/20 18:00 BP 156/54 H 04/17/20 18:00 Pulse Ox 96 04/17/20 18:00 - Orders/Labs/Meds Orders: Active Orders 24 hr Category Date Time Status EKG Documentation Completion [RC] STAT Care 04/17/20 18:02 Active COVID-19/FLU A+B [MOLEC] Urgent Lab 04/17/20 18:03 Ordered CULTURE BLOOD [BC] Stat Lab 04/17/20 18:32 Received UA RFX JACKY AND CULT IF INDIC [URIN] Urgent Lab 04/17/20 18:03 Ordered Labs: Laboratory Tests 04/17/20 04/17/20 04/17/20 Range/Units 18:32 18:32 18:32 WBC 8.9 (5.0-10.0) 10^3/uL RBC 2.99 L (4.2-5.4) 10^6/uL Hgb 9.7 L (12.0-16.0) g/dL Hct 29.8 L (37.0-47.0) % MCV 99.7 (80-100) fL MCH 32.4 (27.0-34.0) pg MCHC 32.6 L (33.0-35.0) g/dL Plt Count 113 L (150-450) 10^3/uL Neut % (Auto) 73.4 (42.2-75.2) % Lymph % (Auto) 14.8 L (20.5-50.1) % Douglas % (Auto) 8.2 H (2-8) % Eos % (Auto) 2.8 (1.0-3.0) % Baso % (Auto) 0.8 (0.0-1.0) % Add Manual Diff Yes Neutrophils % (Manual) 73 (42-75) % Lymphocytes % (Manual) 15 L (20-50) % Monocytes % (Manual) 9 H (2-8) % Eosinophils % (Manual) 3 (1-3) % Sodium 135 L (136-145) mmol/L Potassium 4.9 (3.5-5.1) mmol/L Chloride 96 L (98-107) mmol/L Carbon Dioxide 24 (21-32) mmol/L Anion Gap 19.9 H (7-13) mEq/L BUN 54 H (7-18) mg/dL Creatinine 9.15 H* (0.55-1.02) mg/dL Est Cr Clr Drug Dosing TNP Estimated GFR (MDRD) 4 BUN/Creatinine Ratio 5.9 (No establ ref range) Glucose 258 H (74-99) mg/dL Lactic Acid 1.8 (0.4-2.0) mmol/L Calcium 9.7 (8.5-10.1) mg/dL Total Bilirubin 1.4 H (0.2-1.0) mg/dL AST 760 H (15-37) U/L ALT 398 H (14-59) U/L Alkaline Phosphatase 179 H (46-116) U/L Troponin I 0.022 (0.000-0.056) ng/mL B-Natriuretic Peptide 1950 H (0-100) pg/ml Total Protein 7.2 (6.4-8.2) g/dL Albumin 3.5 (3.4-5.0) g/dL Globulin 3.7 Albumin/Globulin Ratio 0.9 - Re-Assessments/Exams Free Text/Narrative Re-Assessment/Exam: 04/17/20 20:[address] Contreras @ who kindly accepted pt. Departure - Departure Time of Disposition: 20:50 Disposition: DC/Tfer to Acute Hospital 02 Condition: Fair Clinical Impression: End stage renal disease on dialysis, Confusion, Elevated brain natriuretic peptide (BNP) level, Generalized weakness CKD (chronic kidney disease) Qualifiers: Chronic kidney disease stage: on chronic dialysis Qualified Code(s): N18.6 - End stage renal disease; Z99.2 - Dependence on renal dialysis - Discharge Information Forms: Interfacility Transfer [facility] Sepsis Event Note (ED) - Evaluation Sepsis Screening Result: No Definite Risk - Focused Exam Vital Signs: Vital Signs Temp Pulse Resp BP Pulse Ox 04/17/20 18:00 37.1 C 73 22 H 156/54 H 96
--- NOTE | 2020-04-17 19:57 | CT ---
PROCEDURE INFORMATION: Exam: CT Head Without Contrast Exam date and time: 04/17/2020 7:28 PM Age: 59 years old Clinical indication: Other: Altered mentation TECHNIQUE: Imaging protocol: Computed tomography of the head without contrast. Total images: 153 Radiation optimization: All CT scans at this facility use at least one of these dose optimization techniques: automated exposure control; mA and/or kV adjustment per patient size (includes targeted exams where dose is matched to clinical indication); or iterative reconstruction. COMPARISON: CT Head wo Cont 07/02/2019 1:18 PM FINDINGS: Brain: Mild generalized atrophy with moderate periventricular white matter microvascular changes consistent with the patient's advanced age. No extra-axial fluid collections. No evidence of acute intracranial hemorrhage. Monroe-white differentiation is well maintained. Chronic infarcts are again noted in the right frontal lobe, right occipital lobe, and left occipital lobe. These are unchanged. The infarcts in the right frontal lobe and right occipital lobe demonstrate small elements of chronic cortical calcification which are unchanged. No intracranial mass lesions. No midline shift or herniation. Cerebral ventricles: Moderate compensatory ventriculomegaly secondary to central atrophy. Bones/joints: The calvarium and visualized facial bones are intact. Paranasal sinuses: Visualized paranasal sinuses are clear. Mastoid air cells: Visualized mastoid air cells are clear. Orbital cavity: Visualized orbital contents demonstrate no evidence of acute abnormality. Vasculature: Moderate calcific atherosclerosis is identified in the visualized proximal intracranial arterial segments. No asymmetric vascular hyperdensities suggestive of thrombosis are identified. Soft tissues: The scalp and visualized soft tissues demonstrate no acute abnormality. Other findings: The IACs are grossly normal. The sella is grossly normal. IMPRESSION: 1. No acute intracranial process. No intracranial hemorrhage or mass effect. 2. Chronic infarcts in the right frontal lobe and bilateral occipital lobes with mild elements of chronic cortical calcification. 3. Atrophy and microvascular changes consistent with the patient's age. 4. Moderate calcific atherosclerosis.
== END 2020-04-17 21:05 ==
LOC: DL.ED 18:06
DX: I12.0 Hypertensive chronic kidney disease with stage 5 chronic kidney disease or end stage renal disease (principal); N18.6 End stage renal disease; E11.22 Type 2 diabetes mellitus with diabetic chronic kidney disease; R79.89 Other specified abnormal findings of blood chemistry; I25.2 Old myocardial infarction; J44.9 Chronic obstructive pulmonary disease, unspecified; K21.9 Gastro-esophageal reflux disease without esophagitis; E03.9 Hypothyroidism, unspecified; Z79.899 Other long term (current) drug therapy; Z99.2 Dependence on renal dialysis; Z79.4 Long term (current) use of insulin; Z79.02 Long term (current) use of antithrombotics/antiplatelets; Z88.4 Allergy status to anesthetic agent; Z88.6 Allergy status to analgesic agent; Z86.73 Personal history of transient ischemic attack (TIA), and cerebral infarction without residual deficits
CPT/HCPCS: 36415; 70450; 71045; 80053; 83605; 83880; 84484; 85025; 87040; 93005; 99285-25

== ENCOUNTER 2020-06-02 15:14 | Emergency (ER) | payer MEDICARE, MEDICAID ==
[2020-06-02 15:24] VITALS: BP 186/58; PULSE 59
[2020-06-02 16:14] LABS: ANION GAP 13.9 mEq/L (7-13)
[2020-06-02 16:29] LABS: PTT,PARTIAL THROMBOPLSTIN TIME 30.1 SEC (22.0-34.0)
--- NOTE | 2020-06-02 17:02 | CT ---
PROCEDURE INFORMATION: Exam: CT Head Without Contrast Exam date and time: 06/02/2020 4:34 PM Age: 60 years old Clinical indication: Altered mental status/memory loss; Confusion or disorientation; Additional info: Confusion; Frequent falls over past week TECHNIQUE: Imaging protocol: Computed tomography of the head without contrast. Radiation optimization: All CT scans at this facility use at least one of these dose optimization techniques: automated exposure control; mA and/or kV adjustment per patient size (includes targeted exams where dose is matched to clinical indication); or iterative reconstruction. COMPARISON: CT Head wo Cont 04/17/2020 7:28 PM FINDINGS: Brain: Moderate stable cerebral atrophy with periventricular multiple hypodensities predominating within the right frontal white matter. Multiple chronic infarcts are seen and unchanged within the right frontal and occipital lobes with stable chronic calcification. Chronic small left occipital infarct is identified. There is a small chronic right caudate nucleus lacunar infarct. Minute right cerebellar infarct is identified. No posterior fossa acute edema or mass. Stable posterior fossa atrophy There is no acute hemorrhage. No intra-axial or extra-axial fluid collections are present. No mass effect. No midline shift. Cerebral ventricles: Stable compensatory ventriculomegaly. Bones/joints: Unremarkable. No acute fracture. Paranasal sinuses: Visualized sinuses are unremarkable. No fluid levels. Mastoid air cells: Visualized mastoid air cells are well aerated. Soft tissues: Unremarkable. IMPRESSION: 1. No acute hemorrhage, fluid collection or intracranial abnormality. 2. Chronic stable multi-infarct abnormalities of bilateral occipital lobes, right greater than left and right frontal lobe. 3. Stable moderate cerebral atrophy with compensatory ventriculomegaly.
[2020-06-02] MEDS ORDERED: Bumetanide 1 MG/4 ML MDV IVPUSH ONE (17:52)
[2020-06-02] MEDS ORDERED: cefTRIAXone 1 GM in Sodium Chloride 0.9% 50 ML IV ONE (19:52)
--- NOTE | 2020-06-02 20:21 | EDM.PDOC ---
Scribed by Kristan Hendrix 06/02/20 2019 for Arianna Rae PA-C ED HPI GENERAL MEDICAL PROBLEM - General Chief Complaint: Neuro Symptoms/Deficits Stated Complaint: EXTREMLY CONFUSSED FELL LAST NIGHT Time Seen by Provider: 06/02/20 16:10 Source of Information: Reports: Patient, RN, RN Notes Reviewed History Limitations: Reports: No Limitations - History of Present Illness INITIAL COMMENTS - FREE TEXT/NARRATIVE: Patient is 60-year-old female who presents to the ED from dialysis clinic after dialysis and nurses state confusion. Her states that she has been for over a week. Frequent falls in her home. Denies fever, shaking chills, chest pain, abdominal pain. Her states that she has been incontinent of bowel and bladder. Upon interview, the patient is restless and unable to discuss HPI, information given by . She is oriented to self and place only. Confused to time and situation. denies changes to her medications. reports fell out of bed twice last night. No recent med changes with exception of BP med one month ago. Very restless during nights. Onset: Gradual Duration: Constant Location: Reports: Head Severity: Severe Improves with: Reports: None Worsens with: Reports: None Associated Symptoms: Reports: No Other Symptoms - Related Data Allergies Allergy/AdvReac Type Severity Reaction Status Date / Time Anesthetics - Amide Type - Allergy Anaphylactic Verified 06/02/20 15:31 Select A Shock [Anesthetics - Amide Type] ibuprofen Allergy Stomach Verified 06/02/20 15:31 Ache Home Meds: Home Meds Bumetanide [Bumex] 1 mg PO DAILY 06/11/16 [History] Insulin Aspart [NovoLOG] 10 units SQ BIDMEALS 06/11/16 [History] Insulin Detemir [Levemir] 10 units SQ QPM 06/11/16 [History] Mometasone/Formoterol [Dulera 200-5 MCG] 1 puff INH BID 06/11/16 [History] Montelukast [Singulair] 1 tab PO DAILY PRN 06/11/16 [History] PARoxetine HCl [Paxil] 20 mg PO DAILY 06/11/16 [History] Pantoprazole Sodium [Protonix] 40 mg PO DAILY 06/11/16 [History] hydrALAZINE [Apresoline] 1 tab PO DAILY 06/11/16 [History] Levothyroxine [Synthroid] 200 mcg PO DAILY 09/03/17 [History] Clopidogrel Bisulfate [Clopidogrel] 75 mg PO DAILY 07/02/19 [History] Loratadine/Pseudoephedrine [Allergy Relief D 12-Hour Tab] 1 each PO DAILY 07/02/19 [History] Ondansetron [Zofran ODT] 4 mg PO Q6H PRN 07/02/19 [History] Simethicone 80 mg PO PRN 07/02/19 [History] amLODIPine [Norvasc] 5 mg PO BEDTIME 07/02/19 [History] atorvaSTATin [Lipitor] 40 mg PO DAILY 07/02/19 [History] Past Medical History HEENT History: Reports: Impaired Vision Other HEENT History: wears glasses Cardiovascular History: Reports: Heart Murmur, Hypertension, NC Respiratory History: Reports: Asthma, COPD, Pneumonia, Recurrent Gastrointestinal History: Reports: GERD Genitourinary History: Reports: Dialysis 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: Reports: Other (See Below) Other 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: hysterectomy 10 years ago Musculoskeletal History: Reports: Osteoarthritis Other Musculoskeletal History: left knee surgery Neurological History: Reports: CVA Other Neuro History: CVA May 2017-gait slightly unsteady Psychiatric History: Reports: Depression Endocrine/Metabolic History: Reports: Diabetes, Type II, Hypothyroidism Hematologic History: Reports: Anemia Immunologic History: Reports: None Oncologic (Cancer) History: Reports: None Dermatologic History: Reports: Other (See Below) Other Dermatologic History: Hx of frequent rashes - Infectious Disease History Infectious Disease History: Reports: Measles, Mumps - Past Surgical History GI Surgical History: Reports: Other (See Below) Other GI Surgeries/Procedures: stomach tumor removed 10 years ago Female Surgical History: Reports: Other (See Below) Other Female Surgeries/Procedures: tumor removed from stomach Musculoskeletal Surgical History: Reports: Other (See Below) Other Musculoskeletal Surgeries/Procedures:: surgical repair to left knee 1978 Social & Family History - Family History Family Medical History: No Pertinent Family History - Tobacco Use Tobacco Use Status *Q: Never Tobacco User - Caffeine Use Caffeine Use: Reports: None Caffeine Use Comment: occassional - Recreational Drug Use Recreational Drug Use: No - Living Situation & Occupation Living situation: Reports: , with Spouse Occupation: Retired ED ROS GENERAL - Review of Systems Review Of Systems: Comprehensive ROS is negative, except as noted in HPI. ED EXAM, NEURO - Physical Exam Exam: See Below Exam Limited By: Other (confusion) General Appearance: Alert, Other (Chronically ill appearing. ) Eye Exam: Bilateral Eye: EOMI, Normal Inspection, PERRL Ears: Normal External Exam, Normal Canal, Hearing Grossly Normal, Normal TMs Nose: Normal Inspection, Normal Mucosa, No Blood Throat/Mouth: Other (multiple missing and chipped teeth) Head Exam: Atraumatic, Normocephalic, Other (purple bruising forehead , bilateral lower chin. ) Neck: Normal Inspection, Supple, Non-Tender, Full Range of Motion Respiratory/Chest: Crackles (bilateral) Cardiovascular: Other (+4 murmur; systolic loudest over pulmonic area) GI/Abdominal: Normal Bowel Sounds, Soft, Non-Tender, No Organomegaly, No Distention, No Abnormal Bruit, No Mass (Female) Exam: Deferred Rectal (Female) Exam: Deferred Neurological: Other (Confused, disorientated and restless.) Back Exam: Normal Inspection Extremities: Other (left BKA. No edema) Psychiatric: Normal Mood, Flat Affect Skin Exam: Other (bruising to bilateral chin. BVE. ) #1 Interpretation EKG Date: 06/02/20 Time: 15:31 Rhythm: Other (sinus rhythm) Rate (Beats/Min): 59 [place]: Normal P-Wave: Present QRS: Normal QT: Normal Course - Vital Signs Last Recorded V/S: Last Vital Signs Temp 97.8 F 06/02/20 15:22 Pulse 59 L 06/02/20 15:22 Resp 17 06/02/20 15:22 BP 186/58 H 06/02/20 15:22 Pulse Ox 99 06/02/20 15:22 - Orders/Labs/Meds Orders: Active Orders 24 hr Category Date Time Status EKG Documentation Completion [RC] STAT Care 06/02/20 15:50 Active CXR [Chest 1V Frontal] [CR] Urgent Exams 06/02/20 20:10 Ordered CULTURE URINE [RM] Stat Lab 06/02/20 18:10 Received LACTIC ACID [CHEM] Routine Lab 06/02/20 19:23 Ordered Labs: Laboratory Tests 06/02/20 06/02/20 06/02/20 Range/Units 15:25 15:25 15:25 WBC 7.1 (5.0-10.0) 10^3/uL RBC 4.17 L (4.2-5.4) 10^6/uL Hgb 13.5 D (12.0-16.0) g/dL Hct 41.7 (37.0-47.0) % MCV 100.0 (80-100) fL MCH 32.4 (27.0-34.0) pg MCHC 32.4 L (33.0-35.0) g/dL Plt Count 131 L (150-450) 10^3/uL Add Manual Diff Yes Neutrophils % (Manual) 74 (42-75) % Lymphocytes % (Manual) 22 (20-50) % Monocytes % (Manual) 3 (2-8) % Eosinophils % (Manual) 1 (1-3) % Polychromasia 1+ slight PT 13.5 H (9.0-12.0) SEC INR 1.4 H (0.9-1.2) APTT 30.1 (22.0-34.0) SEC Sodium 140 (136-145) mmol/L Potassium 3.9 (3.5-5.1) mmol/L Chloride 99 (98-107) mmol/L Carbon Dioxide 31 (21-32) mmol/L Anion Gap 13.9 H (7-13) mEq/L BUN 20 H D (7-18) mg/dL Creatinine 4.58 H D (0.55-1.02) mg/dL Est Cr Clr Drug Dosing 12.08 mL/min Estimated GFR (MDRD) 10 BUN/Creatinine Ratio 4.4 (No establ ref range) Glucose 213 H (74-99) mg/dL Lactic Acid (0.4-2.0) mmol/L Calcium 8.8 (8.5-10.1) mg/dL Phosphorus 3.3 (2.6-4.7) mg/dL Magnesium 1.9 (1.8-2.4) mg/dL Total Bilirubin 1.2 H (0.2-1.0) mg/dL AST 19 (15-37) U/L ALT 21 (14-59) U/L Alkaline Phosphatase 174 H (46-116) U/L Ammonia (11-32) umol/L Troponin I 0.034 (0.000-0.056) ng/mL C-Reactive Protein 2.6 H (0.0-0.9) mg/dL B-Natriuretic Peptide 2960 H (0-100) pg/ml Total Protein 7.7 (6.4-8.2) g/dL Albumin 3.6 (3.4-5.0) g/dL Globulin 4.1 Albumin/Globulin Ratio 0.9 TSH, Ultra Sensitive (0.36-3.74) uIU/mL Urine Color (YELLOW) Urine Appearance (CLEAR) Urine pH (5.0-9.0) Ur Specific [place] (1.005-1.030) Urine Protein (NEGATIVE) Urine Glucose (UA) (NEGATIVE) Urine Ketones (NEGATIVE) Urine Occult Blood (NEGATIVE) Urine Nitrite (NEGATIVE) Urine Bilirubin (NEGATIVE) Urine Urobilinogen (0.2-1.0) mg/dL Ur Leukocyte Esterase (NEGATIVE) Urine RBC /HPF Urine WBC (0-5/HPF) /HPF Ur Epithelial Cells (NOT SEEN) /HPF Urine Bacteria (0-FEW/HPF) /HPF Urine Other Urine Opiates Screen (NEGATIVE) Ur Oxycodone Screen (NEGATIVE) Urine Methadone Screen (NEGATIVE) Ur Barbiturates Screen (NEGATIVE) U Tricyclic Antidepress (NEGATIVE) Ur Phencyclidine Scrn (NEGATIVE) Ur Amphetamine Screen (NEGATIVE) U Methamphetamines Scrn (NEGATIVE) Urine MDMA Screen (NEGATIVE) U Benzodiazepines Scrn (NEGATIVE) Urine Cocaine Screen (NEGATIVE) U Marijuana (THC) Screen (NEGATIVE) 06/02/20 06/02/20 06/02/20 Range/Units 15:25 18:10 18:10 WBC (5.0-10.0) 10^3/uL RBC (4.2-5.4) 10^6/uL Hgb (12.0-16.0) g/dL Hct (37.0-47.0) % MCV (80-100) fL MCH (27.0-34.0) pg MCHC (33.0-35.0) g/dL Plt Count (150-450) 10^3/uL Add Manual Diff Neutrophils % (Manual) (42-75) % Lymphocytes % (Manual) (20-50) % Monocytes % (Manual) (2-8) % Eosinophils % (Manual) (1-3) % Polychromasia PT (9.0-12.0) SEC INR (0.9-1.2) APTT (22.0-34.0) SEC Sodium (136-145) mmol/L Potassium (3.5-5.1) mmol/L Chloride (98-107) mmol/L Carbon Dioxide (21-32) mmol/L Anion Gap (7-13) mEq/L BUN (7-18) mg/dL Creatinine (0.55-1.02) mg/dL Est Cr Clr Drug Dosing mL/min Estimated GFR (MDRD) BUN/Creatinine Ratio (No establ ref range) Glucose (74-99) mg/dL Lactic Acid 2.4 H* (0.4-2.0) mmol/L Calcium (8.5-10.1) mg/dL Phosphorus (2.6-4.7) mg/dL Magnesium (1.8-2.4) mg/dL Total Bilirubin (0.2-1.0) mg/dL AST (15-37) U/L ALT (14-59) U/L Alkaline Phosphatase (46-116) U/L Ammonia (11-32) umol/L Troponin I (0.000-0.056) ng/mL C-Reactive Protein (0.0-0.9) mg/dL B-Natriuretic Peptide (0-100) pg/ml Total Protein (6.4-8.2) g/dL Albumin (3.4-5.0) g/dL Globulin Albumin/Globulin Ratio TSH, Ultra Sensitive (0.36-3.74) uIU/mL Urine Color Dark yellow (YELLOW) Urine Appearance Slightly cloudy (CLEAR) Urine pH 8.5 (5.0-9.0) Ur Specific [place] 1.020 (1.005-1.030) Urine Protein >=300 H (NEGATIVE) Urine Glucose (UA) 250 H (NEGATIVE) Urine Ketones Negative (NEGATIVE) Urine Occult Blood Large H (NEGATIVE) Urine Nitrite Negative (NEGATIVE) Urine Bilirubin Negative (NEGATIVE) Urine Urobilinogen 0.2 (0.2-1.0) mg/dL Ur Leukocyte Esterase Moderate H (NEGATIVE) Urine RBC 20-30 H /HPF Urine WBC 75-100 H (0-5/HPF) /HPF Ur Epithelial Cells Moderate H (NOT SEEN) /HPF Urine Bacteria Moderate H (0-FEW/HPF) /HPF Urine Other See note Urine Opiates Screen Negative (NEGATIVE) Ur Oxycodone Screen Negative (NEGATIVE) Urine Methadone Screen Negative (NEGATIVE) Ur Barbiturates Screen Negative (NEGATIVE) U Tricyclic Antidepress Negative (NEGATIVE) Ur Phencyclidine Scrn Negative (NEGATIVE) Ur Amphetamine Screen Negative (NEGATIVE) U Methamphetamines Scrn Negative (NEGATIVE) Urine MDMA Screen Negative (NEGATIVE) U Benzodiazepines Scrn Negative (NEGATIVE) Urine Cocaine Screen Negative (NEGATIVE) U Marijuana (THC) Screen Negative (NEGATIVE) 06/02/20 06/02/20 Range/Units 19:20 19:20 WBC (5.0-10.0) 10^3/uL RBC (4.2-5.4) 10^6/uL Hgb (12.0-16.0) g/dL Hct (37.0-47.0) % MCV (80-100) fL MCH (27.0-34.0) pg MCHC (33.0-35.0) g/dL Plt Count (150-450) 10^3/uL Add Manual Diff Neutrophils % (Manual) (42-75) % Lymphocytes % (Manual) (20-50) % Monocytes % (Manual) (2-8) % Eosinophils % (Manual) (1-3) % Polychromasia PT (9.0-12.0) SEC INR (0.9-1.2) APTT (22.0-34.0) SEC Sodium (136-145) mmol/L Potassium (3.5-5.1) mmol/L Chloride (98-107) mmol/L Carbon Dioxide (21-32) mmol/L Anion Gap (7-13) mEq/L BUN (7-18) mg/dL Creatinine (0.55-1.02) mg/dL Est Cr Clr Drug Dosing mL/min Estimated GFR (MDRD) BUN/Creatinine Ratio (No establ ref range) Glucose (74-99) mg/dL Lactic Acid (0.4-2.0) mmol/L Calcium (8.5-10.1) mg/dL Phosphorus (2.6-4.7) mg/dL Magnesium (1.8-2.4) mg/dL Total Bilirubin (0.2-1.0) mg/dL AST (15-37) U/L ALT (14-59) U/L Alkaline Phosphatase (46-116) U/L Ammonia 26 (11-32) umol/L Troponin I (0.000-0.056) ng/mL C-Reactive Protein (0.0-0.9) mg/dL B-Natriuretic Peptide (0-100) pg/ml Total Protein (6.4-8.2) g/dL Albumin (3.4-5.0) g/dL Globulin Albumin/Globulin Ratio TSH, Ultra Sensitive 30.57 H (0.36-3.74) uIU/mL Urine Color (YELLOW) Urine Appearance (CLEAR) Urine pH (5.0-9.0) Ur Specific [place] (1.005-1.030) Urine Protein (NEGATIVE) Urine Glucose (UA) (NEGATIVE) Urine Ketones (NEGATIVE) Urine Occult Blood (NEGATIVE) Urine Nitrite (NEGATIVE) Urine Bilirubin (NEGATIVE) Urine Urobilinogen (0.2-1.0) mg/dL Ur Leukocyte Esterase (NEGATIVE) Urine RBC /HPF Urine WBC (0-5/HPF) /HPF Ur Epithelial Cells (NOT SEEN) /HPF Urine Bacteria (0-FEW/HPF) /HPF Urine Other Urine Opiates Screen (NEGATIVE) Ur Oxycodone Screen (NEGATIVE) Urine Methadone Screen (NEGATIVE) Ur Barbiturates Screen (NEGATIVE) U Tricyclic Antidepress (NEGATIVE) Ur Phencyclidine Scrn (NEGATIVE) Ur Amphetamine Screen (NEGATIVE) U Methamphetamines Scrn (NEGATIVE) Urine MDMA Screen (NEGATIVE) U Benzodiazepines Scrn (NEGATIVE) Urine Cocaine Screen (NEGATIVE) U Marijuana (THC) Screen (NEGATIVE) Meds: Medications Discontinued Medications Generic Name Dose Route Start Last Admin Trade Name Freq PRN Reason Stop Dose Admin Bumetanide 0.5 mg 06/02/20 17:52 06/02/20 18:13 Bumetanide 1 Mg/4 Ml Mdv IVPUSH 06/02/20 17:53 0.5 mg ONETIME ONE Administration Ceftriaxone Sodium 1 gm/ 50 mls @ 100 mls/hr 06/02/20 19:52 06/02/20 20:00 Sodium Chloride IV 06/02/20 20:21 100 mls/hr ONETIME ONE Administration - Re-Assessments/Exams Free Text/Narrative Re-Assessment/Exam: 06/02/20 20:19 [facility] no bed availability. Patient accepted by Dr Khoury [facility]. Tx via [facility]. Departure - Departure Time of Disposition: 20:21 Disposition: DC/Tfer to Acute Hospital 02 Condition: Undetermined Clinical Impression: Confusion, ESRD on hemodialysis, History of CVA (cerebrovascular accident), Chronic anticoagulation Altered mental status Qualifiers: Altered mental status type: disorientation Qualified Code(s): R41.0 - Disorientation, unspecified Fall at home Qualifiers: Encounter type: initial encounter Qualified Code(s): W19.XXXA - Unspecified fall, initial encounter; Y92.009 - Unspecified place in unspecified non- institutional (private) residence as the place of occurrence of the external cause - Discharge Information *PRESCRIPTION DRUG MONITORING PROGRAM REVIEWED*: No *COPY OF PRESCRIPTION DRUG MONITORING REPORT IN PATIENT OSVALDO: No Forms: ED Department Discharge Sepsis Event Note (ED) - Evaluation Sepsis Screening Result: No Definite Risk - Focused Exam Vital Signs: Vital Signs Temp Pulse Resp BP Pulse Ox 06/02/20 15:22 97.8 F 59 L 17 186/58 H 99 - My Orders Last 24 Hours: My Active Orders 06/02/20 20:10 CXR [Chest 1V Frontal] [CR] Urgent - Assessment/Plan Last 24 Hours: My Active Orders 06/02/20 20:10 CXR [Chest 1V Frontal] [CR] Urgent I have read and agree with the documentation that has been completed regarding this visit. By signing this record, I attest that the documentation was completed in my physical presence and is an accurate record of the encounter.
--- NOTE | 2020-06-02 20:46 | CR ---
PROCEDURE INFORMATION: Exam: XR Chest Exam date and time: 06/02/2020 8:21 PM Age: 60 years old Clinical indication: Other: Altered mental state; Additional info: Altered mentation TECHNIQUE: Imaging protocol: XR of the chest Views: 1 view. COMPARISON: CR Chest 1V Frontal 04/17/2020 6:40 PM FINDINGS: Lungs: Vascular congestion. No acute interstitial or airspace disease. Pleural spaces: Unremarkable. No pleural effusion. No pneumothorax. Heart/Mediastinum: The heart is markedly enlarged. Bones/joints: No acute skeletal abnormality or aggressive osseous lesion. Soft tissues: Multiple surgical clips in the right axilla. IMPRESSION: Vascular congestion. No other acute thoracic pathology is grossly noted.
== END 2020-06-02 21:14 ==
LOC: DL.ED 15:14
DX: R41.0 Disorientation, unspecified (principal); I12.0 Hypertensive chronic kidney disease with stage 5 chronic kidney disease or end stage renal disease; N18.6 End stage renal disease; E11.22 Type 2 diabetes mellitus with diabetic chronic kidney disease; I25.2 Old myocardial infarction; J44.9 Chronic obstructive pulmonary disease, unspecified; K21.9 Gastro-esophageal reflux disease without esophagitis; E03.9 Hypothyroidism, unspecified; Z86.73 Personal history of transient ischemic attack (TIA), and cerebral infarction without residual deficits; Z79.01 Long term (current) use of anticoagulants; Z88.4 Allergy status to anesthetic agent; Z88.6 Allergy status to analgesic agent; Z79.4 Long term (current) use of insulin; Z79.02 Long term (current) use of antithrombotics/antiplatelets; Z79.899 Other long term (current) drug therapy; Y92.009 Unspecified place in unspecified non-institutional (private) residence as the place of occurrence of the external cause
CPT/HCPCS: 36415; 70450; 71045; 80053; 80305; 81001; 82140; 83605; 83735; 83880; 84100; 84443; 84484; 85025; 85610; 85730; 86140; 87086; 87088; 87186; 93005; 96365; 96375; 99285; J0696; J3490; 93010; 99284